=== PATIENT | male | born 1955 | race Caucasian/White ===

== ENCOUNTER 2023-11-20 22:06 | Inpatient (IN) | payer MEDICARE, SELFPAY ==
[2023-11-20 14:54] VITALS: BP 112/76
[2023-11-20 15:21] LABS: % Basophils 0.2 % (0-2); % Eosinophils 1.9 % (0-6); % Immature Granulocytes 0.4 % (0-0.5); % Lymphocytes 8.5 % (20.5-51.1); % Monocytes 5.5 % (1.7-9.3); % Neutrophils 83.5 % (42.2-75.2); Absolute Eosinophils 0.2 10^3/uL (0-0.7); Absolute Lymphocytes 0.7 10^3/uL (1.2-3.4); Absolute Monocytes 0.5 10^3/uL (0.1-0.6); Absolute Neutrophils 7.1 10^3/uL (1.4-6.5); Hematocrit 43.8 % (39.0-52.0); Hemoglobin 14.6 g/dL (13.0-18.0); Mean Corp Hgb Conc. 33.3 g/dL (33.0-37.0); Mean Corpuscular Hgb 30.9 pg (27.0-31.0); Mean Corpuscular Volume 92.6 fL (80.0-94.0); Mean Platelet Volume 9.6 fL (7.4-10.4); Nucleated Red Blood Cells % 0 % (-); Platelet Count 201 10^3/uL (130-400); Red Blood Cell Count 4.73 10^6/uL (4.70-6.10); Red Cell Dist. Width 15.9 % (11.5-14.5); White Blood Cell Count 8.4 10^3/uL (4.8-10.8)
[2023-11-20 15:35] LABS: APTT 30.8 Sec (23.4-35.0)
[2023-11-20 15:36] LABS: ALT (SGPT) 15 U/L (0-50); AST (SGOT) 21 U/L (17-59); Alkaline Phosphatase 68 U/L (38-126); Blood Urea Nitrogen 15 mg/dl (9-20); Calcium 8.4 mg/dl (8.4-10.2); Carbon Dioxide 27 mmol/L (22-30); Chloride 101 mmol/L (98-107); Glucose 127 mg/dl (70-99); Potassium 3.3 mmol/L (3.5-5.1); Sodium 135 mmol/L (135-145); Total Bilirubin 1.4 mg/dl (0.2-1.3); Total Protein 5.7 g/dl (6.3-8.2); eGFR > 60.00
[2023-11-20] MEDS: FOLTX 1 TABLET PO (17:37)
[2023-11-20 17:38] VITALS: BMI 18.2
[2023-11-20 18:11] LABS: NT-proBNP 653 pg/ml; Troponin I < 0.012 ng/ml
[2023-11-20 18:56] LABS: Vitamin B12 691 pg/ml (239-931)
--- NOTE | 2023-11-20 20:56 | ED.GENMED ---
History of Present Illness
General
Chief Complaint: Failure to Thrive
Source: patient
Exam Limitations: none
Time Seen by Provider: 11/20/23 16:14
Nursing documentation reviewed up to this point in time: agreed with
History of Present Illness
History of Present Illness:
68-year-old male past medical history of previous CVA, hypertension previous prostate cancer depression anxiety presenting to the emergency department today with concerns of weight loss and worsening dyspnea on exertion shortness of breath over the
past few weeks. Does not not feel well over the past few weeks as well. Is a chronic daily drinker but has not been drinking much over the past 7 days. Specific chest pain.
Review of Systems
Review of Systems
Allergies reviewed?: Yes
All Other Systems: ROS reviewed and negative except as documented in HPI and ROS
Phy Exam
Physical Exam
Physical Exam:
GENERAL: Alert , in no apparent distress
EYE: pupils equal and reactive
NECK: Supple, no significant adenopathy.
ENT: o/p clr, mmm.
CARDIAC: Regular rate and rhythm .
LUNGS: Significant adventitious lung sounds to the left clear on the right.
ABDOMEN: Soft, without focal tenderness, no r/g, no cvat
NEUROLOGICAL: Alert and oriented, no focal neuro deficits
SKIN: Warm and dry, skin intact.
MUSCULOSKELETAL: No edema, well perfused.
PSYCH: Normal and appropriate interaction.
Course
Orders/Labs/Results
Orders:
Orders
11/20/23 15:13
Complete Blood Count/With Diff Urgent
Comprehensive Metabolic Panel Urgent
PTT Urgent
11/20/23 16:37
EKG [Electrocardiogram (*1)] Urgent
Reason for Study: Fatigue / Weakness
EKG- Treatment ONCE
Chest [CR Chest - 2 Views ] Urgent
Comment:
Reason For Exam: sob
11/20/23 17:15
FA/Cyanocobalamin/Pyridoxine [Foltx] 1 tablet PO NOW STA
11/20/23 17:36
B12 [Vitamin B12] Urgent
BNP [NT-proBNP] Urgent
TSH Urgent
Troponin I Urgent
11/20/23 20:03
CT Chest With Iv Contrast Urgent
Comment:
Reason For Exam: abnormal cxr
11/20/23 21:13
Azithromycin 500 mg/250 ml [Zithromax Infusion] 500 mg in 250 ml IV NOW
CefTRIAXone [Rocephin] 2,000 mg IV NOW STA
Heparin 3,600 units IV NOW STA
11/20/23 21:[address] Non Medication Order As Directed
Physician Order: PTT 6 hours after initial start of Heparin infusion
Above order entered?: Yes
11/20/23 21:15
Heparin 30963 Units/250 ml 25,000 units in 250 ml IV PER PROTOCOL
Weight to be used for heparin protocol in kilograms (kg):: 45.2
Protocol:: DVT/PE
PTT Goal Range to be used:: PTT 73 to 111 seconds
Order type:: Initial
INITIAL Infusion Dose (UNITS/KG/hr) & then follow protocol:: 18 units/kg/hr
Infusion Dose in UNITS/hr & then follow protocol (UNITS/hr):: 800
INFUSION RATE in mL/hr & then follow protocol (mL/hr):: 8
For DVT/PE algorithm, re-bolus for low PTT?: Yes
PTT less than or equal to 64 seconds:: Re-bolus 80 units/kg (max 10,000units). Increase by 200 units/hr
(+ 2mL/hr)
PTT 64.1 to 72.9 seconds:: Re-bolus 40 units/kg (max 5,000 units). Increase by 100 units/hr
(+ 1mL/hr)
PTT 73 to 111 seconds:: Target Range. No change in rate.
PTT 111.1 to 130.9 seconds:: Decrease rate by 100 units/hr (- 1 mL/hr)
PTT 131 to 199.9 seconds:: HOLD for 1 hr. Then decrease by 100 units/hr (- 1mL/hr)
PTT greater than or equal to 200 seconds:: HOLD for 2 hrs & Notify Provider. Then decrease by 200 units/hr
(- 2mL/hr)
Lab follow-up:: Each change, PTT q6h until 2 consecutive are therapeutic. Then
PTT daily.
11/20/23 21:39
Heparin 3,600 units IV PRN PRN
11/20/23 21:40
Heparin 1,800 units IV PRN PRN
Sterile Water [Sterile Water For Injection] 20 ml .ROUTE .[facility]
11/20/23 21:50
Admit/Transfer Patient As Directed
Co-Sign Provider:
Level of Care: Inpatient admission
Assign to:: Medical/Surgical
Physician / Group: Leslie
Diagnosis: SOB
Reason for Hospitalization: Shortness of breath, pulmonary embolism
Expected length of stay greater than two midnights?: Yes
ELOS- Estimated Length of Stay in days: 5
I certify the patient meets the requirements for IP care: Yes
11/20/23 21:51
Code Status As Directed
Resuscitation Status: Full Code
11/20/23 22:00
Consult Interventional Radiology [IRAD CONSULT] Routine
Consulting Provider: Nehemias Bonilla
Was physician already notified: Yes
Reason for Consult/Procedure: R side pleural effusion
Acknowledgement that appropriate orders are entered: Yes
PULMONARY CONSULT Routine
Consulting Provider: Luana Luna
Was physician already notified: Yes
Reason for consult: R lung collpase, PE
11/21/23 04:00
PTT Urgent
Abnormal Lab Results
11/20/23 11/20/23
15:13 17:36
RDW 15.9 H %
(11.5-14.5)
Absolute Neuts (auto) 7.1 H 10^3/uL
(1.4-6.5)
Absolute Lymphs (auto) 0.7 L 10^3/uL
(1.2-3.4)
Neutrophils % 83.5 H %
(42.2-75.2)
Lymphocytes % 8.5 L %
(20.5-51.1)
Potassium 3.3 L mmol/L
(3.5-5.1)
Creatinine 0.6 L mg/dL
(0.7-1.3)
Glucose 127 H mg/dl
(70-99)
Total Bilirubin 1.4 H mg/dl
(0.2-1.3)
Total Protein 5.7 L g/dl
(6.3-8.2)
Albumin 3.0 L g/dl
(3.5-5.0)
TSH 38.30 H uIU/ml
(0.47-4.68)
11/20/23 15:13
11/20/23 15:13
CT read
IMPRESSION:
Relatively moderate sized nonocclusive pulmonary embolism in the right main pulmonary artery.
Severely atelectatic/collapsed appearance of the right lung with a suspected degree of underlying pulmonary consolidation.
Occlusion of the right main bronchus.
Innumerable nodules throughout the left lung.
Constellation of findings is most suggestive of pulmonary malignancy. Infection cannot technically be excluded.
Very large right-sided pleural effusion. Very small left pleural effusion.
No pneumothorax.
Atherosclerosis including marked coronary artery calcification. No aortic aneurysm.
Additional findings: Old left-sided rib fractures. Chronic-appearing nonunion right-sided rib fractures. Chronic DDD/DJD.
Vital Signs
Initial and Last Documented VS:
Initial Vital Signs
Pulse Resp BP Pulse Ox
87 16 112/76 96
11/20/23 14:54 11/20/23 14:54 11/20/23 14:54 11/20/23 14:54
Last Documented Vital Signs
Pulse Resp BP Pulse Ox
64 31 106/72 96
11/20/23 21:45 11/20/23 20:00 11/20/23 21:10 11/20/23 21:45
MDM/Problems Addressed
MDM/Problems Addressed:
68-year-old male presenting to the emergency department today with concerns of worsening dyspnea on exertion fatigue weakness and generalized worsening symptoms over the past few weeks. On arrival vital signs are normal patient in no obvious
distress does have adventitious lung sounds to the left side. X-ray showing complete white discoloration to the right side lung without hard differentiate from the x-ray. CT scan was ordered with contrast showed likely large effusion with
compression of the lung. Remained stable throughout ER stay will be admitted for IR consultation as well as heparin started for possibility of PE and antibiotics as infection cannot be ruled out.
*Critical Care Note
Total Time (30-74mins, 75-104mins- exclusive of procedures): Not Applicable
ED Attending Note
-
Portions of this chart may have been created with voice recognition software.� Occasional wrong word or��sound alike� substitutions may have occurred due to the inherent limitations of voice recognition software.
Discharge Plan
Departure
Patient Disposition: Admit
Date of Disposition: 11/20/23
Time of Disposition: 22:19
Admit to: Telemetry
Admit to doctor: Ivory
Presentation/result/management discussed w/ accepting MD/DO: Hospitalist
Patient with high blood pressure during this ER visit?: No
Condition: Good
Covid-19: Not Applicable
Discharge Problem:
Pleural effusion
Interventions
Interventions:
*Risk Screen - Suicide Last Done: 11/20/23 17:20
*General Assessment Last Done: 11/20/23 19:07
*Neglect/Abuse Screening Last Done: 11/20/23 19:07
ED- Fall Risk Assessment Last Done: 11/20/23 18:05
*ED COVID-19 Vaccine History Last Done: 11/20/23 19:07
[2023-11-20 21:10] VITALS: BP 106/72
--- NOTE | 2023-11-20 21:20 | HPS.HSE ---
Family Physician
-
Family Physician: * NONE
Chief Complaint
-
Shortness of breath
History of Present Illness
68-year-old male who lives in [place] area with known history of a prior stroke, hypertension, alcohol abuse and a former smoker who quit 25 days ago brought to the hospital by his niece for evaluation of the shortness of breath and weight loss.
Patient awake, alert and oriented x 3 hold appropriate conversation accompanied by her niece at the bedside. Patient admitted for the last month he is progressively feeling short of breath worse with any kind of exertional activity and noticing he
is gradually losing weight admit he has been eating and drinking well, denies any nausea or vomiting or any fever or chill admit he is having a cough productive of clear occasional yellow phlegm, denies any hematuria or any rectal bleed or changes
stool or urine color.
No headache or vision change.
He is been smoking a pack until 25 days ago while drinking 3 large beers daily the last time was 2 days ago.
He is able to provide most of the information while his niece helps provide more information.
CT chest Right lung collapse and Pulmonary embolism.
Started on antibiotics and heparin Drip.
Medical History
Past Medical History
Past Medical History: Reports Other
Additional Past Medical History:
Past medical History:
Hypertension
Stroke
Prostate cancer
alcohol abuse
Former Smoker
Social History:drinks alcohol, drinks 3 large beer daily , smoked one pack for many year but quit 25 days ago, denied drug use.
Family history: father had colon cancer, Hypertension.
Past Surgical History: Reports Other
Social History
Unable to obtain full social history at this time due to: Other
Family History
Family History: Other
Allergies / Home Medications
Allergies reflects when Allergies were last updated in [employer].
Home Medications with original date entered in [employer]
Allergy/Medication List:
Not taking any medication.
Review of Systems
-
A 12 point ROS was completed and negative except as noted: Yes
Physical Exam
Vital Signs
Vital Signs
Pulse Resp BP Pulse Ox
70 31 112/76 93
11/20/23 20:00 11/20/23 20:00 11/20/23 14:54 11/20/23 20:00
Physical Exam
General: Other
Psych: Other
Laboratory Results
-
11/20/23 15:13
11/20/23 15:13
Laboratory Results
APTT 30.8 Sec (23.4-35.0) 11/20/23 15:13
Total Bilirubin 1.4 mg/dl (0.2-1.3) H 11/20/23 15:13
AST 21 U/L (17-59) 11/20/23 15:13
ALT 15 U/L (0-50) 11/20/23 15:13
Alkaline Phosphatase 68 U/L (38-126) 11/20/23 15:13
Troponin I < 0.012 ng/ml 11/20/23 17:36
CT chest:
Relatively moderate sized nonocclusive pulmonary embolism in the right main pulmonary artery.
Severely atelectatic/collapsed appearance of the right lung with a suspected degree of underlying pulmonary consolidation.
Occlusion of the right main bronchus.
Innumerable nodules throughout the left lung.
Constellation of findings is most suggestive of pulmonary malignancy. Infection cannot technically be excluded.
Very large right-sided pleural effusion. Very small left pleural effusion.
No pneumothorax.
Atherosclerosis including marked coronary artery calcification. No aortic aneurysm.
CXR:
Dense opacification of the entire right hemithorax. Numerous differential diagnostic possibilities some of which include pleural effusion, mass and parenchymal consolidation.
Nonspecific reticular interstitial opacities throughout the left lung.
No findings to suggest mediastinal shift.
Data Reviewed
-
Diagnostic Radiology: Image Personally Visualized and interpreted, Discussed with Physician, Discussed with Patient and Discussed with Family
CT Scan: Image Personally Visualized and interpreted, Discussed with Physician, Discussed with Patient and Discussed with Family
Lab Data: Labs Reviewed by me, Discussed with Patient and Discussed with Family
Old Records: Reviewed
Impression/Plan
-
IMPRESSION:
68 year with prior history of stroke, hypertension and alcohol abuse, presented with Shortness of breath for one month , likely secondary to collapsed lung and pulmonary embolism, concerns for lung cancer, .maintains normal oxygen saturation in room
air.
Collapsed lung
R bronchial mass
Pleural effusion
Concern for obstructive pneumonia
Pulmonary embolism
Alcohol abuse
Former Smoker
PLAN:
Cover with Rocephin and Zithromax
Monitor vital signs
Started on heparin drip and monitor for any kind of bleeding
Pulmonary and IR consult.
IR for evaluation for thoracocentesis
Recheck labs
Alcohol Withdrawal
All discussed with the patient and his niece
code status is full code
[2023-11-20] MEDS: HEPARIN 3600 UNITS IV (21:50)
[2023-11-20] MEDS: ZITHROMAX INFUSION 250 IV (21:50)
[2023-11-20] MEDS: ROCEPHIN 2000 MG IV (21:50)
[2023-11-20] MEDS: HEPARIN 25000 UNITS/250 ML IV (21:51)
[2023-11-20] MEDS: VITAMIN B1 100 MG PO (23:10)
[2023-11-20 23:19] VITALS: BP 100/66; BMI 17.9
--- NOTE | 2023-11-20 23:30 | PTCARENOTE ---
Patient admitted from ED. Patient is AAO x3, on RA, in no acute distress. Heparin drip initiated in ED. Bed alarm is on. Patient oriented to room and call hall within reach.
[2023-11-21 00:50] LABS: GGTP 11 U/L (15-73)
[2023-11-21 04:42] LABS: % Basophils 0.4 % (0-2); % Eosinophils 3.6 % (0-6); % Immature Granulocytes 0.7 % (0-0.5); % Lymphocytes 12.7 % (20.5-51.1); % Monocytes 5.4 % (1.7-9.3); % Neutrophils 77.2 % (42.2-75.2); Absolute Eosinophils 0.3 10^3/uL (0-0.7); Absolute Immature Granulocytes 0.1 10^3/uL (0-0.05); Absolute Lymphocytes 0.9 10^3/uL (1.2-3.4); Absolute Monocytes 0.4 10^3/uL (0.1-0.6); Absolute Neutrophils 5.7 10^3/uL (1.4-6.5); Hematocrit 38.7 % (39.0-52.0); Hemoglobin 13.7 g/dL (13.0-18.0); Mean Corp Hgb Conc. 35.4 g/dL (33.0-37.0); Mean Corpuscular Hgb 31.2 pg (27.0-31.0); Mean Corpuscular Volume 88.2 fL (80.0-94.0); Mean Platelet Volume 9.4 fL (7.4-10.4); Nucleated Red Blood Cells % 0 % (-); Platelet Count 197 10^3/uL (130-400); Red Blood Cell Count 4.39 10^6/uL (4.70-6.10); Red Cell Dist. Width 15.7 % (11.5-14.5); White Blood Cell Count 7.4 10^3/uL (4.8-10.8)
[2023-11-21 05:05] LABS: APTT 112.1 Sec (23.4-35.0)
[2023-11-21 05:23] LABS: Blood Urea Nitrogen 12 mg/dl (9-20); Calcium 8.3 mg/dl (8.4-10.2); Carbon Dioxide 23 mmol/L (22-30); Chloride 103 mmol/L (98-107); Estimated Creatinine Clearance 76 ml/min; Glucose 84 mg/dl (70-99); Magnesium 2.3 mg/dl (1.6-2.3); Potassium 3.3 mmol/L (3.5-5.1); Sodium 134 mmol/L (135-145); eGFR > 60.00
[2023-11-21 06:06] LABS: Vitamin B12 904 pg/ml (239-931)
[2023-11-21] MEDS: FOLVITE 1 MG PO (07:41)
[2023-11-21] MEDS: THIAMINE INJECTION 200 MG IV ×2 (07:41→20:28)
[2023-11-21] MEDS: VITAMIN B1 100 MG PO (07:41)
[2023-11-21 07:49] VITALS: BP 144/94
[2023-11-21] MEDS: KCL 40 MEQ PO (07:49)
--- NOTE | 2023-11-21 09:52 | CM ---
Patient seen bedside, initial assessment completed. Patient resides independently in a two story home, three steps to enter. Patient reports he has support from family. Patient denies DME, VN, or SNF history. Patient reports he is not working.
Patient denies PCP, is not interested in a list at this time. Patient confirms pharmacy [facility]. CM offered [facility]/ resources to patient for alcohol use, patient declines at this time. CM will continue to follow for all discharge planning needs.
Plan; home no needs anticipated.
--- NOTE | 2023-11-21 11:57 | CON.PUL ---
Consultation
Consultation Request
Date/Time Consultation Requested: 11/21/23
Date/Time Consultation Performed: 11/21/23
Performing Provider: Jeremy
Reason for Consultation: PE
Medical History
-
History of Present Illness:
Patient is a 68-year-old male with known history of a prior stroke, hypertension, alcohol abuse and a former smoker who quit 25 days ago brought to the hospital by his niece for evaluation of the shortness of breath and weight loss. He notes that
this has been progressive for the past year in which he had had decreasing appetite, weight loss, SOB and weakness.
Has been smoking 1PPD since 12 years old, quit 1 months ago. He is a chronic everyday drinker, 3 large beers daily, last drink was 2 days ago [employer].
In ER, CXR and CT chest showing total right sided 'white out' indicating possible effusion or atelectasis with possible R sided thrombus. He is started on abx and IV heparin.
Denies known history of lung disease. He has a history of prostate cancer in the past.
There is family history of pancreatic cancer in his father.
Past Medical History
Past Medical History: Other (see list below)
Social History
Tobacco: Former Smoker
Alcohol: Daily
Drug: None
Family History
Family History: Cancer
Allergies / Home Medications
Allergies
Allergy/AdvReac Type Severity Reaction Status Date / Time
No Known Allergies Allergy Verified 11/20/23 14:53
Home Medications
�Medication �Instructions �Recorded �Confirmed �Last Taken �Type
No Meds [No Current Medications] 11/20/23 11/20/23 Unknown History
Review of Systems
-
History Source: Patient
All other systems: Negative unless noted
Vitals / Labs / Diagnostic Testing
Vital Signs
Temp Pulse Resp BP Pulse Ox
98.3 F 81 20 144/94 94
11/21/23 07:49 11/21/23 07:49 11/21/23 07:49 11/21/23 07:49 11/21/23 10:21
Lab Data
11/21/23 04:33
11/21/23 04:33
Laboratory Results
11/20/23 11/20/23 11/21/23
15:13 21:14 04:33
APTT 30.8 Cancelled 112.1 H
Diagnostic Testing:
Physical Exam
-
HEENT: Normocephalic, Anicteric and Moist Mucous Membranes
Cardiovascular: S1/S2 and Regular Rhythm
Respiratory: Non-Labored Respirations and Other (absent BS on R)
GI: Soft, Non Distended and Non Tender
Neurology: Awake, Alert, Oriented, AO x 3 and No Motor Deficits
Skin: Warm and Dry
General: Poor Appetite and Other (cachectic/disheveled appearance, weak/deconditioned)
Assessment
-
Patient is a 68-year-old male with known history of a prior stroke, hypertension, alcohol abuse and a former smoker who quit 25 days ago brought to the hospital by his niece for evaluation of the shortness of breath and weight loss. He notes that
this has been progressive for the past year in which he had had decreasing appetite, weight loss, SOB and weakness. In ER, CXR and CT chest showing total right sided 'white out' indicating possible effusion or atelectasis with possible R sided
thrombus. He is started on abx and IV heparin. We are consulted for eval 11/21/23.
Total 'white out', R sided atelectasis
R sided PE
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
SOB
Weight loss, decreased appetite
Cachexia
Conditions present [employer]
Hypertension
Stroke
Prostate cancer
Chronic alcohol abuse
Former Smoker
Plan
No oxygen was needed on admission, currently saturating >90% on RA
Denies known history of lung disease. He has a history of prostate cancer in the past.
There is family history of pancreatic cancer in his father.
Has been smoking 1PPD since 12 years old, quit 1 months ago.
Suspect patient has underlying malignant effusion
CXR/CT obtained indicating total R side white out
IR consult for thora, please send labs/cyto
Other imaging reviewed-CT also showing possible PE
Started on IV heparin
Smoking history noted
Smoking cessation, has quit 25 days ago
He is a chronic everyday drinker, 3 large beers daily, last drink was 2 days ago [employer]
Observe for signs of w/d
MSAS PRN
Thiamine/folate
Weight loss noted
May need dietary consult for diet
Cachectic appearing
Will need outpatient pulmonary evaluation in our office for PFTs and 6MWT
Reviewed with patient
Overall prognosis appears poor, may need to consider GOC discussions pending results of path
We will follow
Diagnostic Data
Chest X-Ray: 11/20/23- Dense opacification of the entire right hemithorax. Numerous differential diagnostic possibilities some of which include pleural effusion, mass and parenchymal consolidation.
Nonspecific reticular interstitial opacities throughout the left lung. No findings to suggest mediastinal shift.
CT Scan: 11/20/23- Large right pleural effusion with complete collapse of the right lung, findings resulting in complete opacification of the right hemithorax. There is slight shift of the mediastinum toward the left. Subtle thickened enhancement of
the periphery of the right pleural space, especially inferiorly, which is suggestive of malignant right pleural effusion. Within the interlobar right pulmonary artery, there is an ovoid filling defect, with main differential considerations of bland
clot/thrombus, versus tumor thrombus extending into the lumen of the right pulmonary artery. Numerous nodular opacities throughout the left lung, with a region of greater confluence in the medial aspect of the left lower lobe. Findings are felt to
most likely represent neoplasia. Diffuse infection is a differential consideration, but felt to be less likely. There is a minimal left effusion, posteromedially. Lymphadenopathy in the AP window and left hilar region, highly suspicious for
neoplastic lymphadenopathy.
No convincing evidence for bony metastatic disease. Slightly enlarged lymph nodes in the gastrohepatic ligament region of the upper abdomen, suspicious for neoplastic lymphadenopathy.
Echo:
PFT's:
Reports and relevant images were personally reviewed.
-----
Total time spent on this consultation __75__ includes review of history, physical exam, medications, laboratory data, personal review of imaging, extensive review of outpatient records, discussion with care team and respiratory therapy.
[2023-11-21 12:08] LABS: APTT 65.2 Sec (23.4-35.0)
[2023-11-21] MEDS: HEPARIN 1800 UNITS IV (12:30)
--- NOTE | 2023-11-21 13:05 | W.PN.HOSP.TC ---
Today's Communication/Plan
-
consider stopping heparin
will need IR for thoracentesis and likely chest tube--studies ordered
check free T4 in AM--for now start levothyroxine 25 mcg daily
await pulm/IR
Assessment / Plan
Assessment / Plan
pt is a 68 year old male
SOB for at least 4 weeks--significant right sided pleural effusion (with smoking hx, weight loss) likely malignant--await pulm/IR input--needs thoracentesis and likely chest tube (unclear if lung will re-expand without it)--if we are considering
post obstructive pna, would change rocephin/zithromax to zosyn for better anaerobic coverage
hypokalemia--replete
Alcohol abuse--says stopped 7 days ago--no signs of withdrawal--cont protocol
likely severe protein calorie malnutrition--BMI 17
hypothyroid--TSH 35--will need to start levothyroxine--check free T4 in AM
code status -- full code
Anticipated Discharge: > 48 hours
Subjective/Interval History
-
Date of Service: November 21, 2023
pt does not feel well, weight loss, no appetite
Objective Data
-
Labs:
Laboratory Results
11/21/23 11/21/23 11/21/23
04:33 11:38 18:30
WBC 7.4
Hgb 13.7
Hct 38.7 L
Plt Count 197
APTT 112.1 H 65.2 H Pending
Sodium 134 L
Potassium 3.3 L
Chloride 103
Carbon Dioxide 23
BUN 12
Creatinine 0.5 L
Glucose 84
Calcium 8.3 L
Vital Signs:
max temp for 24 hours
11/20/23
23:19
Temp 97.6 F
Vital Signs
Temp Pulse Resp BP Pulse Ox
98.3 F 81 20 144/94 94
11/21/23 07:49 11/21/23 07:49 11/21/23 07:49 11/21/23 07:49 11/21/23 10:21
I&O
11/20/23 11/21/23 11/22/23
06:59 06:59 06:59
Intake Total 0 / 0
Output Total 225 / 225
Balance -225 / -225
Review of Systems
-
All other systems: Reviewed and negative
Constitutional: Reports Weight Loss
Abdomen/GI: Reports Anorexia
Physical Exam
-
General: Appears Chronically Ill and Cachectic
HEENT: Normocephalic and Atraumatic; Negative Good Dentition (poor dentition)
Respiratory: Decreased Breath Sounds (no breath sounds entire right lung)
Cardiac: Regular Rhythm, S1/S2 and Murmur
GI: Soft, Nontender, Nondistended and Normal Bowel Sounds
Musculoskeletal: No Clubbing, No Cyanosis and No Edema
Neuro: Awake and Alert
[2023-11-21 14:27] LABS: Total Protein 5.1 g/dl (6.3-8.2)
[2023-11-21 14:41] LABS: LDH 424 U/L (120-246)
[2023-11-21 15:59] VITALS: BP 93/62
[2023-11-21 18:53] LABS: APTT 130.6 Sec (23.4-35.0)
[2023-11-21] MEDS: ROCEPHIN 1000 MG IV (20:05)
[2023-11-21] MEDS: STERILE WATER FOR INJECTION 10 ML IV (20:05)
[2023-11-21] MEDS: ZITHROMAX INFUSION 250 IV (20:33)
[2023-11-21 21:51] VITALS: BP 93/58
[2023-11-21 23:16] VITALS: BP 93/52
[2023-11-22 01:55] LABS: APTT 79.9 Sec (23.4-35.0)
[2023-11-22 03:03] VITALS: BP 94/62
[2023-11-22] MEDS: HEPARIN 25000 UNITS/250 ML IV (04:56)
--- NOTE | 2023-11-22 05:46 | PTCARENOTE ---
Pts BPs low throughout the night House [employer] ASSIGNMENT EDITOR aware.
[2023-11-22 07:25] VITALS: BP 104/65
[2023-11-22 08:24] LABS: % Basophils 0.4 % (0-2); % Eosinophils 3.4 % (0-6); % Immature Granulocytes 0.5 % (0-0.5); % Monocytes 5.3 % (1.7-9.3); % Neutrophils 79.4 % (42.2-75.2); Absolute Eosinophils 0.2 10^3/uL (0-0.7); Absolute Lymphocytes 0.6 10^3/uL (1.2-3.4); Absolute Monocytes 0.3 10^3/uL (0.1-0.6); Absolute Neutrophils 4.5 10^3/uL (1.4-6.5); Hematocrit 38.4 % (39.0-52.0); Hemoglobin 13.2 g/dL (13.0-18.0); Mean Corp Hgb Conc. 34.4 g/dL (33.0-37.0); Mean Corpuscular Hgb 30.8 pg (27.0-31.0); Mean Corpuscular Volume 89.7 fL (80.0-94.0); Mean Platelet Volume 9.5 fL (7.4-10.4); Nucleated Red Blood Cells % 0 % (-); Platelet Count 199 10^3/uL (130-400); Red Blood Cell Count 4.28 10^6/uL (4.70-6.10); Red Cell Dist. Width 15.9 % (11.5-14.5); White Blood Cell Count 5.6 10^3/uL (4.8-10.8)
[2023-11-22 08:34] LABS: APTT 55.3 Sec (23.4-35.0)
[2023-11-22 08:54] LABS: ALT (SGPT) 14 U/L (0-50); AST (SGOT) 22 U/L (17-59); Albumin 2.5 g/dl (3.5-5.0); Alkaline Phosphatase 65 U/L (38-126); Blood Urea Nitrogen 9 mg/dl (9-20); Calcium 7.8 mg/dl (8.4-10.2); Carbon Dioxide 25 mmol/L (22-30); Chloride 104 mmol/L (98-107); Estimated Creatinine Clearance 76 ml/min; Glucose 86 mg/dl (70-99); Magnesium 2.3 mg/dl (1.6-2.3); Phosphorus 2.9 mg/dl (2.5-4.5); Potassium 3.4 mmol/L (3.5-5.1); Sodium 134 mmol/L (135-145); Total Bilirubin 0.7 mg/dl (0.2-1.3); Total Protein 4.9 g/dl (6.3-8.2); eGFR > 60.00
[2023-11-22] MEDS: KCL 40 MEQ PO (09:44)
[2023-11-22] MEDS: THIAMINE INJECTION 200 MG IV ×2 (09:44→21:19)
[2023-11-22] MEDS: FOLVITE 1 MG PO (09:44)
[2023-11-22] MEDS: HEPARIN 3600 UNITS IV (09:52)
[2023-11-22 10:45] VITALS: BP 85/72; BP_SYST 89
--- NOTE | 2023-11-22 11:11 | PTCARENOTE ---
Patient nervous about procedure today. Emotional support given, family member at bedside. Patient dyspneic when truing in bed, harsh, hacking occasional productive cough. Call hall in reach.
[2023-11-22 12:25] VITALS: BP 107/74
--- NOTE | 2023-11-22 12:30 | W.PN.PUL3 ---
Today's Communication / Plan
-
Thoracentesis today removed 2.25 L of dark brown pleural exudative fluid --> follow-up pleural fluid studies including cytology and micro
Consider Pleurx catheter given this is likely a malignant effusion
GOC discussion
Pain control
Dietary consultation
Oncology consult
Assessment
-
Patient is a 68-year-old male with known history of a prior stroke, hypertension, alcohol abuse and a former smoker who quit 25 days ago brought to the hospital by his niece for evaluation of the shortness of breath and weight loss. He notes that
this has been progressive for the past year in which he had had decreasing appetite, weight loss, SOB and weakness. In ER, CXR and CT chest showing total right sided 'white out' indicating possible effusion or atelectasis with possible R sided
thrombus. He is started on abx and IV heparin. We are consulted for eval 11/21/23.
Impression:
Total 'white out', R sided atelectasis due to large right-sided effusion
R sided PE with concern for tumor thrombus
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
Innumerable small left sided pulmonary nodules with left suprahilar/hilar lymphadenopathy likely due to metastatic disease
SOB
Weight loss, decreased appetite
Cachexia
Conditions present [employer]
Hypertension
Stroke
Prostate cancer
Chronic alcohol abuse
Former Smoker
Plan
No oxygen was needed on admission, currently saturating >90% on RA
Denies known history of lung disease. He has a history of prostate cancer in the past.
There is family history of pancreatic cancer in his father.
Has been smoking 1PPD since 12 years old, quit 1 month ago.
Suspect patient has underlying R-sided malignant effusion
CXR/CT obtained indicating total R side white out
Thoracentesis today removed 2.25 L of dark brown pleural fluid --> follow-up pleural fluid studies including cytology and micro --> consider pleurX, rebecca as given patient's poor functional status, I do not believe he is a candidate for chemo anyway
Follow-up cytology from thoracentesis and if negative then would send additional fluid off for a second time, otherwise would consider transthoracic needle aspiration from one of the many subpleural pulmonary nodules, however most of them are small
and the LLL 2 cm nodule is about 4 cm from the pleural surface so this is not ideal for a TTNA
Would consult oncology and check additional imaging with CT abdomen/pelvis as well as imaging of the brain to assess for any other distant metastasis as this could be helpful to determine which area should be biopsied to aid in diagnosis
Other imaging reviewed-CT also showing possible PE
Started on IV heparin --> eventual transition to Eliquis
Smoking history noted
Smoking cessation, has quit 25 days ago
He is a chronic everyday drinker, 3 large beers daily, last drink was 2 days ago [employer]LE[employer] DEAN
Observe for signs of w/d
MSAS PRN
Thiamine/folate
Weight loss noted
Recommend dietary consuld
Cachectic appearing
Will need outpatient pulmonary evaluation in our office for PFTs and 6MWT
Reviewed with patient
Overall prognosis appears poor, may need to consider GOC discussions pending results of path
We will follow
Total time spent today was 35 minutes for this encounter. Time includes reviewing laboratory test/imaging results, reviewing pertinent medical records, obtaining and reviewing medical history, performing an appropriate exam, ordering medications,
tests and procedures. Time also includes documentation of this encounter, coordinating patient care and communicating with other healthcare professionals. Total time does not include separately billed tests performed on this date of service.
Diagnostic Data
Chest X-Ray: 11/20/23- Dense opacification of the entire right hemithorax. Numerous differential diagnostic possibilities some of which include pleural effusion, mass and parenchymal consolidation.
Nonspecific reticular interstitial opacities throughout the left lung. No findings to suggest mediastinal shift.
CT Scan: 11/20/23- Large right pleural effusion with complete collapse of the right lung, findings resulting in complete opacification of the right hemithorax. There is slight shift of the mediastinum toward the left. Subtle thickened enhancement of
the periphery of the right pleural space, especially inferiorly, which is suggestive of malignant right pleural effusion. Within the interlobar right pulmonary artery, there is an ovoid filling defect, with main differential considerations of bland
clot/thrombus, versus tumor thrombus extending into the lumen of the right pulmonary artery. Numerous nodular opacities throughout the left lung, with a region of greater confluence in the medial aspect of the left lower lobe. Findings are felt to
most likely represent neoplasia. Diffuse infection is a differential consideration, but felt to be less likely. There is a minimal left effusion, posteromedially. Lymphadenopathy in the AP window and left hilar region, highly suspicious for
neoplastic lymphadenopathy.
No convincing evidence for bony metastatic disease. Slightly enlarged lymph nodes in the gastrohepatic ligament region of the upper abdomen, suspicious for neoplastic lymphadenopathy.
Echo:
PFT's:
Reports and relevant images were personally reviewed.
-----
Subjective Data
-
Date of Service:
Date of Service: November 22, 2023
Chief Complaint: Pulmonary Follow Up
Subjective:
Patient seen at bedside. Has some chest discomfort after the thoracentesis. Denies shortness of breath. Denies headache, abdominal pain, fevers or chills.
Review of Systems
General: Other (Negative unless mentioned above)
Objective Data
Data Reviewed
Vital Signs / I&O / Oxygen:
Vital Signs
Temp Pulse Resp BP Pulse Ox
97.5 F 89 24 85/72 96
11/22/23 10:45 11/22/23 10:45 11/22/23 10:45 11/22/23 10:45 11/22/23 10:45
Intake and Output
11/21/23 11/22/23 11/23/23
06:59 06:59 06:59
Intake Total 0 / 0 1174 / 1174
Output Total 225 / 225 100 / 100
Balance -225 / -225 1074 / 1074
SaO2 96
Physical Exam
General: Respiratory Distress (negative), Comfortable and Other (Cachectic appearing/chronically ill)
HEENT: Normocephalic and Anicteric
Cardiovascular: S1-S2 and Peripheral Edema (negative)
Respiratory: Wheeze (negative), Crackles (negative), Rhonchi (negative) and Other (Reduced breath sounds in the right hemithorax)
GI: Soft, Non Distended, Non Tender and Normal Bowel Sounds
Neurology: Awake and Alert
Skin: Warm and Dry
Labs/Micro/Reports
Lab Data
11/22/23 07:21
11/22/23 07:21
Laboratory Results
11/21/23 11/22/23 11/22/23
18:29 01:23 07:21
APTT 130.6 H 79.9 H 55.3 H
Microbiology
11/21/23 04:34 Nose MRSA Screen - Final
No Methicillin Resistant Staphylococcus aureus isolated.
[2023-11-22 12:31] LABS: Body Fluid pH 7.46
--- NOTE | 2023-11-22 12:32 | PTCARENOTE ---
Received patient from IR at 1225. Patient AAOx3, c/o headache and chest discomfort after right thoracentesis. RR 24, RA 97%. Heparin drip restarted at 1225, per IR ok to restart 1 hour after thoracentesis (1215). Tylenol given for RICCI. Physician and
resident at bedside. Family member at bedside ordering patient lunch.
[2023-11-22 12:56] LABS: Body Fluid WBC 621 /CUMM
[2023-11-22 12:57] LABS: Body Fluid Mononuclear 72.5 %; Body Fluid Polymorphonuclear 27.5 %
[2023-11-22] MEDS: TYLENOL 650 MG PO ×2 (13:05→16:47)
[2023-11-22] MEDS: TESSALON PERLES 200 MG PO (13:05)
[2023-11-22 13:16] LABS: Body Fluid Second Tech EF
--- NOTE | 2023-11-22 14:06 | W.PN.HOSP.TC ---
Addendum entered and electronically signed by Namita Frances MD 11/22/23 16:50:
I saw and evaluated the patient independently. I reviewed the resident�s note and agree with findings and plan as documented by Dr. Santos.
GENERAL: frail, cachectic appearing male in no apparent distress
HEENT: no O2
HEART: regular rate and rhythm, +S1, +S2
LUNGS : decreased BS right lung field with minimal air movement improvement to right lung after thoracentesis--crackles left mariana
ABDOM: soft, nontender, nondistended, + bowel sounds
EXT: no cyanosis, clubbing, or edema
NEUROLOGIC: grossly intact
SOB for at least 4 weeks--significant right sided pleural effusion (with smoking hx, weight loss) likely malignant--apprec pulm/IR input--s/p thoracentesis with 2250mls out-- chest tube not needed currently but likely will need repeat thoracentesis
in AM--fluid studies pending---if we are considering post obstructive pna, cont zosyn for better anaerobic coverage
hypokalemia--replete as needed
Alcohol abuse--says stopped 7 days ago--no signs of withdrawal--cont MSAS protocol
likely severe protein calorie malnutrition--BMI 17
hypothyroid--TSH 35-- started levothyroxine at 25mcg--check free T4 in AM--recheck TFTs in 4 weeks
code status -- full code
updated sister at bedside
Original Note:
Today's Communication/Plan
-
patient underwent thoracocentesis; will continue to be monitored in terms of respiratory distress
Assessment / Plan
Assessment / Plan
pt is a 68 year old male presenting with SOB for at least 4 weeks (ex-smoker)
Imaging shows massive right sided pleural effusion
thoracentesis was performed for the patient today (11/21)- chest tube was not inserted- pt currently is not in significant respiratory distress
levothyroxine was started for the patient. FT4 will be checked in 4-6 weeks
Patient is receiving thiamine due to History of Alcohol abuse
code status -- full code
Anticipated Discharge: 24 - 48 hours
Subjective/Interval History
-
Date of Service: November 22, 2023
Patient is unkempt and mildly agitated. Alert and oriented. He complains of chest pain.
Objective Data
-
Labs:
Laboratory Results
11/22/23 11/22/23
07:21 18:15
WBC 5.6
Hgb 13.2
Hct 38.4 L
Plt Count 199
APTT 55.3 H Pending
Sodium 134 L
Potassium 3.4 L
Chloride 104
Carbon Dioxide 25
BUN 9
Creatinine 0.5 L
Glucose 86
Calcium 7.8 L
Total Bilirubin 0.7
AST 22
ALT 14
Alkaline Phosphatase 65
Vital Signs:
Vital Signs
Temp Pulse Resp BP Pulse Ox
97.5 F 82 24 107/74 97
11/22/23 10:45 11/22/23 12:25 11/22/23 12:25 11/22/23 12:25 11/22/23 12:25
I&O
11/21/23 11/22/23 11/23/23
06:59 06:59 06:59
Intake Total 0 / 0 1174 / 1174
Output Total 225 / 225 100 / 100
Balance -225 / -225 1074 / 1074
Review of Systems
-
History Source: Patient
All other systems: Reviewed and negative
Constitutional: Reports Weight Loss
Respiratory: Reports Pleurisy and Other
Abdomen/GI: Reports Anorexia
Psych: Reports Other
Physical Exam
-
General: Other
HEENT: Normocephalic and Atraumatic
Respiratory: Crackles and Decreased Breath Sounds
Cardiac: Regular Rhythm
GI: Soft, Nontender, Nondistended and Normal Bowel Sounds
Rectal: Brown
Genito-urinary: No Costovertebral Tender
Musculoskeletal: No Clubbing, No Cyanosis and No Edema
Skin: Normal Turgor
Neuro: Awake, Alert, Oriented, No Motor Deficits and Central Nerve's Intact
Hematologic / Lymphatic: No Lymphadenopathy
Psych: Other
Data Reviewed
-
Total Time Spent with Patient (in minutes): 15
--- NOTE | 2023-11-22 14:32 | W.PN.HOSP.TC ---
Assessment / Plan
Assessment / Plan
pt is a 68 year old male presenting with SOB for at least 4 weeks (ex-smoker)
Imaging shows significant right sided pleural effusion
thoracentesis was performed for the patient today (11/21)- chest tube was not inserted
levothyroxine was started for the patient. FT4 will be checked in 4-6 weeks
Patient is receiving thiamine due to History of Alcohol abuse
code status -- full code
Subjective/Interval History
-
Date of Service: November 22, 2023
Objective Data
-
Labs:
Laboratory Results
11/22/23 11/22/23
07:21 18:15
WBC 5.6
Hgb 13.2
Hct 38.4 L
Plt Count 199
APTT 55.3 H Pending
Sodium 134 L
Potassium 3.4 L
Chloride 104
Carbon Dioxide 25
BUN 9
Creatinine 0.5 L
Glucose 86
Calcium 7.8 L
Total Bilirubin 0.7
AST 22
ALT 14
Alkaline Phosphatase 65
Vital Signs:
Vital Signs
Temp Pulse Resp BP Pulse Ox
97.5 F 82 24 107/74 97
11/22/23 10:45 11/22/23 12:25 11/22/23 12:25 11/22/23 12:25 11/22/23 12:25
I&O
11/21/23 11/22/23 11/23/23
06:59 06:59 06:59
Intake Total 0 / 0 1174 / 1174
Output Total 225 / 225 100 / 100
Balance -225 / -225 1074 / 1074
[2023-11-22 14:33] LABS: Body Fluid Glucose 64 mg/dl; Body Fluid LDH 807 U/L
[2023-11-22 15:31] VITALS: BP 97/64
[2023-11-22] MEDS: DUONEB 3 ML INH (15:31)
--- NOTE | 2023-11-22 17:01 | CM ---
Spoke with pt and Ana [phone] sister in room .
Pt has no PCP and declined list.
Pt lives in [place].
Adrielres saw pt but he declined [facility] information.
Explained that with out PCP VN could not set up VN.
Requested PT OT evals.
PLAN Pending PT OT evals
[2023-11-22 17:06] VITALS: BMI 17.9
[2023-11-22] MEDS: ZOSYN 50 IV (21:19)
[2023-11-22 23:27] VITALS: BP 106/70
[2023-11-23 02:20] LABS: APTT 142.2 Sec (23.4-35.0)
[2023-11-23] MEDS: ZOSYN 50 IV ×4 (03:38→20:53)
[2023-11-23] MEDS: SYNTHROID 25 MCG PO (05:46)
[2023-11-23 06:53] LABS: Hematocrit 40.3 % (39.0-52.0); Hemoglobin 13.2 g/dL (13.0-18.0); Mean Corp Hgb Conc. 32.8 g/dL (33.0-37.0); Mean Corpuscular Hgb 30.3 pg (27.0-31.0); Mean Corpuscular Volume 92.4 fL (80.0-94.0); Mean Platelet Volume 9.6 fL (7.4-10.4); Platelet Count 169 10^3/uL (130-400); Red Blood Cell Count 4.36 10^6/uL (4.70-6.10); Red Cell Dist. Width 15.8 % (11.5-14.5); White Blood Cell Count 5.3 10^3/uL (4.8-10.8)
[2023-11-23 07:15] VITALS: BP 123/74
--- NOTE | 2023-11-23 07:50 | PTCARENOTE ---
Pt aaox3 lethargic, shira effect, doesn't like to be bothered when trying to provide care. Pt says at times to stop the heparin drip & then states let me bleed out,let me sleep.Pt was explained the reason for the heparin drip,still reluctant with
care at times.Plan of care continued & emotional support was provided.pt was washed up this morning.Pt was explained to talk to the MD in am about concerns & plan of care. Pt aware of he might need thoracentesis this morning.
[2023-11-23] MEDS: THIAMINE INJECTION 200 MG IV ×2 (08:48→20:53)
[2023-11-23] MEDS: FOLVITE 1 MG PO (08:48)
[2023-11-23 09:23] LABS: Blood Urea Nitrogen 7 mg/dl (9-20); Carbon Dioxide 25 mmol/L (22-30); Chloride 105 mmol/L (98-107); Estimated Creatinine Clearance 76 ml/min; Glucose 79 mg/dl (70-99); Magnesium 2.3 mg/dl (1.6-2.3); Potassium 4.2 mmol/L (3.5-5.1); Sodium 133 mmol/L (135-145); eGFR > 60.00
--- NOTE | 2023-11-23 09:36 | W.PN.HOSP.TC ---
Addendum entered and electronically signed by Namita Frances MD 11/23/23 13:26:
I saw and evaluated the patient independently. I reviewed the resident�s note and agree with findings and plan as documented by Dr. Santos.
GENERAL: frail, cachectic appearing male in no apparent distress
HEENT: no O2
HEART: regular rate and rhythm, +S1, +S2
LUNGS : decreased BS right lung field with minimal air movement improvement to right lung after thoracentesis--crackles left lung
ABDOM: soft, nontender, nondistended, + bowel sounds
EXT: no cyanosis, clubbing, or edema
NEUROLOGIC: grossly intact
SOB for at least 4 weeks--significant right sided pleural effusion (with smoking hx, weight loss) likely malignant--apprec pulm/IR input--s/p thoracentesis with 2250mls out, exudate--for repeat thoracentesis--if we are considering post obstructive
pna, cont zosyn for better anaerobic coverage
hypokalemia--replete as needed
Alcohol abuse--says stopped 7 days ago--no signs of withdrawal--cont MSAS protocol
likely severe protein calorie malnutrition--BMI 17
hypothyroid--TSH 35-- started levothyroxine at 25mcg--check free T4 in AM--recheck TFTs in 4 weeks
code status -- full code
Original Note:
Today's Communication/Plan
-
Repeat thoracocentesis. Continue to monitor vital signs TDS. OT/PT consult
Assessment / Plan
Assessment / Plan
Patient is 68-year-old male
SOB for at least 4 weeks--significant right sided pleural effusion (with smoking hx, weight loss) likely malignant--apprec pulm/IR input--s/p thoracentesis with 2250mls out-- chest tube not needed currently-- repeat thoracentesis likely
needed--fluid studies pending--- started zosyn for better anaerobic coverage (possible postobstructive PNA)
hypokalemia--replete as needed
Alcohol abuse--says stopped 7 days ago--no signs of withdrawal--cont MSAS protocol
likely severe protein calorie malnutrition--BMI 17--possible dietary consultation
hypothyroid--TSH 35-- started levothyroxine at 25mcg--check free T4 in AM--recheck TFTs in 4 weeks
code status -- full code
updated sister at bedside
Anticipated Discharge: > 48 hours
Subjective/Interval History
-
Date of Service: November 23, 2023
Patient is in no apparent distress. Patient mentions he does not want to be visited by OT/PT. per the patient, chest pain is better than yesterday and breathing has slightly improved. Patient is eating better than before.
Objective Data
-
Labs:
Laboratory Results
11/23/23 11/23/23 11/23/23
01:31 06:27 09:40
WBC 5.3
Hgb 13.2
Hct 40.3
Plt Count 169
APTT 142.2 H Pending
Sodium 133 L
Potassium 4.2
Chloride 105
Carbon Dioxide 25
BUN 7 L
Creatinine 0.6 L
Glucose 79
Calcium 8.0 L
Vital Signs:
Vital Signs
Temp Pulse Resp BP Pulse Ox
97.3 F 60 18 123/74 97
11/23/23 07:15 11/23/23 07:15 11/23/23 07:15 11/23/23 07:15 11/23/23 07:15
I&O
11/22/23 11/23/23 11/24/23
06:59 06:59 06:59
Intake Total 1174 / 1174 600 / 600
Output Total 100 / 100 200 / 200
Balance 1074 / 1074 400 / 400
--- NOTE | 2023-11-23 09:56 | PTOTSP ---
SPOKE WITH RN. NOTED THAT PATIENT HAS BEEN REFUSING CARE. PATIENT CONTACTED BEDSIDE AND REFUSED THERAPY STATING 'I CAN'T MOVE.' DESPITE CONTINUED ATTEMPTS, PATIENT REFUSED AND DOES NOT WISH FOR THERAPY TO RETURN. WILL DISCHARGE FROM P.T. SERVICES AT
THIS TIME.
[2023-11-23 10:51] LABS: APTT 54.7 Sec (23.4-35.0)
--- NOTE | 2023-11-23 11:05 | W.PN.PUL3 ---
Today's Communication / Plan
-
Thoracentesis on 11/22/2023 removed 2.25 L of dark brown pleural exudative fluid --> follow-up pleural fluid studies including cytology and micro
Consider Pleurx catheter given this is likely a malignant effusion
GOC discussion
Pain control
Dietary consultation
Check Ct Abd/Pelvis to eval for distant mets
Oncology consult
Assessment
-
Patient is a 68-year-old male with known history of a prior stroke, hypertension, alcohol abuse and a former smoker who quit 25 days ago brought to the hospital by his niece for evaluation of the shortness of breath and weight loss. He notes that
this has been progressive for the past year in which he had had decreasing appetite, weight loss, SOB and weakness. In ER, CXR and CT chest showing total right sided 'white out' indicating possible effusion or atelectasis with possible R sided
thrombus. He is started on abx and IV heparin. We are consulted for eval 11/21/23.
Impression:
Total 'white out', R sided atelectasis due to large right-sided effusion
R sided PE with concern for tumor thrombus
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
Innumerable small left sided pulmonary nodules with left suprahilar/hilar lymphadenopathy likely due to metastatic disease
SOB
Weight loss, decreased appetite
Cachexia
Conditions present [employer]
Hypertension
Stroke
Prostate cancer
Chronic alcohol abuse
Former Smoker
Plan
No oxygen was needed on admission, currently saturating >90% on RA
Denies known history of lung disease. He has a history of prostate cancer in the past.
There is family history of pancreatic cancer in his father.
Has been smoking 1PPD since 12 years old, quit 1 month ago.
Suspect patient has underlying R-sided malignant effusion
CXR/CT obtained indicating total R side white out
Due to possible component of postobstructive pneumonia, continue with Zosyn and would give 7 days antibiotics total assuming he remains afebrile for 48 hours prior
Thoracentesis from 11/22/2023 removed 2.25 L of dark brown exudative pleural fluid --> follow-up pleural fluid studies including cytology and micro --> consider pleurX, rebecca as given patient's poor functional status, I do not believe he is a candidate
for chemo anyway and his treatment for suspected cancer will likely be largely palliative
Follow-up cytology from thoracentesis and if negative then would send additional fluid off for a second time, otherwise would consider transthoracic needle aspiration from one of the many subpleural pulmonary nodules, however most of them are small
and the LLL 2 cm nodule is about 4 cm from the pleural surface so this is not ideal for a TTNA
Would consult oncology and check additional imaging with CT abdomen/pelvis as well as imaging of the brain to assess for any other distant metastasis as this could be helpful to determine which area should be biopsied to aid in diagnosis
Other imaging reviewed-CT also showing possible PE vs tumor
Started on IV heparin --> eventual transition to Eliquis
Smoking history noted
Smoking cessation, has quit within last 1 month
He is a chronic everyday drinker, 3 large beers daily, last drink was 2 days ago [employer]
Observe for signs of w/d
MSAS PRN
Thiamine/folate
Weight loss noted
Dietary consulted
Cachectic appearing
Will need outpatient pulmonary evaluation in our office for PFTs and 6MWT
Reviewed with patient
Overall prognosis appears poor, may need to consider GOC discussions pending results of path
We will follow
Total time spent today was 35 minutes for this encounter. Time includes reviewing laboratory test/imaging results, reviewing pertinent medical records, obtaining and reviewing medical history, performing an appropriate exam, ordering medications,
tests and procedures. Time also includes documentation of this encounter, coordinating patient care and communicating with other healthcare professionals. Total time does not include separately billed tests performed on this date of service.
Diagnostic Data
Chest X-Ray: 11/20/23- Dense opacification of the entire right hemithorax. Numerous differential diagnostic possibilities some of which include pleural effusion, mass and parenchymal consolidation.
Nonspecific reticular interstitial opacities throughout the left lung. No findings to suggest mediastinal shift.
CT Scan: 11/20/23- Large right pleural effusion with complete collapse of the right lung, findings resulting in complete opacification of the right hemithorax. There is slight shift of the mediastinum toward the left. Subtle thickened enhancement of
the periphery of the right pleural space, especially inferiorly, which is suggestive of malignant right pleural effusion. Within the interlobar right pulmonary artery, there is an ovoid filling defect, with main differential considerations of bland
clot/thrombus, versus tumor thrombus extending into the lumen of the right pulmonary artery. Numerous nodular opacities throughout the left lung, with a region of greater confluence in the medial aspect of the left lower lobe. Findings are felt to
most likely represent neoplasia. Diffuse infection is a differential consideration, but felt to be less likely. There is a minimal left effusion, posteromedially. Lymphadenopathy in the AP window and left hilar region, highly suspicious for
neoplastic lymphadenopathy.
No convincing evidence for bony metastatic disease. Slightly enlarged lymph nodes in the gastrohepatic ligament region of the upper abdomen, suspicious for neoplastic lymphadenopathy.
Echo:
PFT's:
Reports and relevant images were personally reviewed.
-----
Subjective Data
-
Date of Service:
Date of Service: November 23, 2023
Chief Complaint: Pulmonary Follow Up
Subjective:
Patient seen and evaluated today at bedside. He has a dry cough with coughing spells and chest pressure. He is on room air breathing complete. Denies headache, abdominal pain, fevers or chills.
Review of Systems
General: Other (Negative unless mentioned above)
Objective Data
Data Reviewed
Vital Signs / I&O / Oxygen:
Vital Signs
Temp Pulse Resp BP Pulse Ox
97.3 F 60 18 123/74 97
11/23/23 07:15 11/23/23 07:15 11/23/23 07:15 11/23/23 07:15 11/23/23 07:15
Intake and Output
11/22/23 11/23/23 11/24/23
06:59 06:59 06:59
Intake Total 1174 / 1174 600 / 600
Output Total 100 / 100 200 / 200
Balance 1074 / 1074 400 / 400
SaO2 97
Physical Exam
General: Respiratory Distress (negative), Comfortable and Other (Cachectic appearing/chronically ill, flat affect)
HEENT: Normocephalic and Anicteric
Cardiovascular: S1-S2 and Peripheral Edema (negative)
Respiratory: Wheeze (negative), Crackles (negative), Rhonchi (negative) and Other (Reduced breath sounds in the right hemithorax)
GI: Soft, Non Distended, Non Tender and Normal Bowel Sounds
Neurology: Awake and Alert
Skin: Warm and Dry
Labs/Micro/Reports
Lab Data
11/23/23 06:27
11/23/23 06:27
Laboratory Results
11/22/23 11/23/23 11/23/23
18:19 01:31 10:05
APTT 77.0 H 142.2 H 54.7 H
Microbiology
11/21/23 13:15 Pleural Fluid Body Fluid Culture - Preliminary
No Growth After 18-24 Hours
11/21/23 13:15 Pleural Fluid Gram Stain - Preliminary
11/21/23 13:16 Pleural Fluid Fungal Culture - Preliminary
Culture in progress.
Positive cultures are reported as soon as detected.
Final report to follow in four to five weeks.
11/21/23 04:34 Nose MRSA Screen - Final
No Methicillin Resistant Staphylococcus aureus isolated.
[2023-11-23] MEDS: HEPARIN 3600 UNITS IV (11:13)
[2023-11-23] MEDS: HEPARIN 25000 UNITS/250 ML IV (13:19)
[2023-11-23 15:41] VITALS: BP 105/72
[2023-11-23 15:53] LABS: Free T4 0.57 ng/dl (0.78-2.19)
[2023-11-23 17:38] LABS: APTT 235.1 Sec (23.4-35.0)
[2023-11-23] MEDS: TESSALON PERLES 200 MG PO (20:57)
--- NOTE | 2023-11-23 21:29 | PTCARENOTE ---
Pt w/ abscess/cyst to R shoulder blade. Removed bandaid from outpt - active purulent drainage. Foam dressing placed on pt.
[2023-11-23 23:42] VITALS: BP 103/67
[2023-11-24] VITALS (7 sets, daily range): BP systolic 72–129; BP diastolic 53–75
[2023-11-24] MEDS: ZOSYN 50 IV ×4 (01:20→20:15)
[2023-11-24 01:54] LABS: APTT 91.7 Sec (23.4-35.0)
[2023-11-24] MEDS: SYNTHROID 25 MCG PO (05:57)
[2023-11-24] MEDS: OMNIPAQUE 50 ML PO (05:58)
[2023-11-24 08:36] LABS: APTT 65.5 Sec (23.4-35.0)
--- NOTE | 2023-11-24 09:21 | W.PN.HOSP.TC ---
Addendum entered and electronically signed by Namita Frances MD 11/24/23 14:33:
I saw and evaluated the patient independently. I reviewed the resident�s note and agree with findings and plan as documented by Dr. Santos.
GENERAL: frail, cachectic appearing male in no apparent distress
HEENT: no O2
HEART: regular rate and rhythm, +S1, +S2
LUNGS : decreased BS right lung field with minimal air movement improvement to right lung, crackles left lung
ABDOM: soft, nontender, nondistended, + bowel sounds
EXT: no cyanosis, clubbing, or edema
NEUROLOGIC: grossly intact
highly suspicious for malignant pleural effusion (source of cancer unknown)--SOB for at least 4 weeks--(with smoking hx, weight loss, possibly lung cancer)--apprec pulm/IR input--s/p thoracentesis with 2250mls out, exudate--for repeat thoracentesis
11/23--cont zosyn for better anaerobic coverage--pulm ordered CT scan for staging (pleural effusions, innumerable lung nodules, LAD, lytic bone lesions)--will need onc consult but have no definitive tissue diagnosis
hypokalemia--replete as needed
Alcohol abuse--says stopped 7 days prior to admission--no signs of withdrawal--cont MSAS protocol
likely severe protein calorie malnutrition--BMI 17
hypothyroid--TSH 35, free T4 0.57 L-- started levothyroxine at 25mcg---recheck TFTs in 4 weeks
cyst on shoulder (sister reports pt had for 15 years)--consult wound care
code status -- full code
Original Note:
Today's Communication/Plan
-
Pending fluid cytology--consider repeat thoracocentesis-ABD/pelvic CT scan
Assessment / Plan
Assessment / Plan
Patient is 68-year-old male
SOB for at least 4 weeks--significant right sided pleural effusion (with smoking hx, weight loss) likely malignant--apprec pulm/IR input--s/p thoracentesis with 2250mls out---fluid studies in favor of malignancy cytology pending--- started zosyn for
better anaerobic coverage (possible postobstructive PNA)
apprec pul consult: Consider Pleurx catheter given this is likely a malignant effusion, GOC discussion, Check Ct Abd/Pelvis to eval for distant mets, Oncology consult
elevated PTT: held heparin drop for 2hrs, initiated with lower dose-- monitor PTT per protocol
Alcohol abuse--says stopped 7 days ago--no signs of withdrawal--cont MSAS protocol
likely severe protein calorie malnutrition--BMI 17--possible dietary consultation
hypothyroid--TSH 35-- started levothyroxine at 25mcg--check free T4 in AM--recheck TFTs in 4 weeks
code status -- full code
updated sister at bedside
Anticipated Discharge: 24 - 48 hours
Subjective/Interval History
-
Date of Service: November 24, 2023
Patient was not in room at the time of visit due to doing abdominal pelvis CT scan. Will visit again later in the morning
Objective Data
-
Labs:
Laboratory Results
11/23/23 11/24/23 11/24/23
23:00 01:19 07:39
APTT Cancelled 91.7 H 65.5 H
Vital Signs:
Vital Signs
Temp Pulse Resp BP Pulse Ox
98.1 F 60 16 111/72 96
11/24/23 07:36 11/24/23 07:36 11/24/23 07:36 11/24/23 07:36 11/24/23 07:36
I&O
11/23/23 11/24/23 11/25/23
06:59 06:59 06:59
Intake Total 600 / 600 1736 / 1736
Output Total 200 / 200 100 / 100
Balance 400 / 400 1636 / 1636
Review of Systems
-
History Source: Patient
All other systems: Reviewed and negative
Constitutional: Reports Weight Loss and No Appetite
Respiratory: Reports Trouble Breathing and Pleurisy
Physical Exam
-
General: Well Developed
HEENT: Normocephalic and Atraumatic
Respiratory: Crackles and Decreased Breath Sounds
Cardiac: Regular Rhythm and S1/S2
Musculoskeletal: No Clubbing, No Cyanosis and No Edema
Neuro: Awake, Alert and Oriented
Hematologic / Lymphatic: No Lymphadenopathy
Psych: Calm
Data Reviewed
-
Total Time Spent with Patient (in minutes): 30
--- NOTE | 2023-11-24 09:30 | PTCARENOTE ---
Resident Danielle made aware of pt. cystic wound on right upper shoulder. No new orders at this time.
[2023-11-24] MEDS: HEPARIN 1800 UNITS IV (09:37)
[2023-11-24] MEDS: FOLVITE 1 MG PO (09:38)
[2023-11-24] MEDS: VITAMIN B1 100 MG PO ×2 (09:38→20:15)
--- NOTE | 2023-11-24 12:39 | W.PN.PUL3 ---
Today's Communication / Plan
-
Thoracentesis on 11/22/2023 removed 2.25 L of dark brown pleural exudative fluid --> cytology shows metastatic adenocarcinoma of lung origin
Consider Pleurx catheter given this is a malignant pleural effusion - this can be done just prior to discharge
Recommend outpatient palliative care referral (which he can still do even if he decides to pursue hospice)
Pain control
Dietary consultation
Oncology consulted and recs appreciated --> pt would not tolerate systemic therapy given his ECOG status.
Recommend GOC discussion and see if pt amenable to Pleurx catheter and hospice
Assessment
-
Patient is a 68-year-old male with known history of a prior stroke, hypertension, alcohol abuse and a former smoker who quit 25 days ago brought to the hospital by his niece for evaluation of the shortness of breath and weight loss. He notes that
this has been progressive for the past year in which he had had decreasing appetite, weight loss, SOB and weakness. In ER, CXR and CT chest showing total right sided 'white out' indicating possible effusion or atelectasis with possible R sided
thrombus. He is started on abx and IV heparin. We are consulted for eval 11/21/23.
Impression:
Total 'white out', R sided atelectasis due to large right-sided malignant pleural effusion in the setting of stage IV metastatic lung adenocarcinoma
R sided PE with concern for tumor thrombus
Malignant R-sided pleural effusion with stage IV NSCLC (adenocarcinoma)
Innumerable small left sided pulmonary nodules with left suprahilar/hilar lymphadenopathy due to metastatic disease
Intra-abdominal/retroperitoneal lymphadenopathy due to metastatic disease with the largest in the periaortic region measuring 12 x 10 mm
SOB
Weight loss, decreased appetite
Cachexia
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
Hypertension
Stroke
Prostate cancer
Chronic alcohol abuse
Former Smoker
Plan
No oxygen was needed on admission, currently saturating >90% on RA
Denies known history of lung disease. He has a history of prostate cancer in the past.
There is family history of pancreatic cancer in his father.
Has been smoking 1PPD since 12 years old, quit ~1 month ago.
Patient has underlying R-sided malignant effusion --> cytology from thoracentesis performed on 11/22/2023 shows metastatic adenocarcinoma, compatible with lung primary origin
Due to possible component of postobstructive pneumonia, continue with Zosyn and would give 7 days antibiotics total assuming he remains afebrile for 48 hours prior
Patient underwent repeat thoracentesis today removing 1.4 L of dark brown exudative pleural fluid; consider pleurX, rebecca as given patient's poor functional status, I do not believe he is a candidate for chemo anyway and his treatment for suspected
cancer will likely be largely palliative - Oncology agrees
Recommend outpatient palliative care consultation
Other imaging reviewed-CT also showing possible PE vs tumor
Started on IV heparin --> would transition to Eliquis after pt gets PleurX catheter, assuming he is amenable to this
Smoking history noted
Smoking cessation, has quit within last 1 month
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
Observe for signs of w/d
MSAS PRN
Thiamine/folate
Weight loss noted
Dietary consulted
Cachectic appearing
Will need outpatient pulmonary evaluation in our office for PFTs and 6MWT
Reviewed with patient
Overall prognosis appears poor, may need to consider GOC discussions pending results of path
We will follow
Total time spent today was 35 minutes for this encounter. Time includes reviewing laboratory test/imaging results, reviewing pertinent medical records, obtaining and reviewing medical history, performing an appropriate exam, ordering medications,
tests and procedures. Time also includes documentation of this encounter, coordinating patient care and communicating with other healthcare professionals. Total time does not include separately billed tests performed on this date of service.
Diagnostic Data
Chest X-Ray 11-20-23- Dense opacification of the entire right hemithorax. Numerous differential diagnostic possibilities some of which include pleural effusion, mass and parenchymal consolidation.
Nonspecific reticular interstitial opacities throughout the left lung. No findings to suggest mediastinal shift.
CT Chest with IV Contrast 11-20-2023- Large right pleural effusion with complete collapse of the right lung, findings resulting in complete opacification of the right hemithorax. There is slight shift of the mediastinum toward the left. Subtle
thickened enhancement of the periphery of the right pleural space, especially inferiorly, which is suggestive of malignant right pleural effusion. Within the interlobar right pulmonary artery, there is an ovoid filling defect, with main differential
considerations of bland clot/thrombus, versus tumor thrombus extending into the lumen of the right pulmonary artery. Numerous nodular opacities throughout the left lung, with a region of greater confluence in the medial aspect of the left lower
lobe. Findings are felt to most likely represent neoplasia. Diffuse infection is a differential consideration, but felt to be less likely. There is a minimal left effusion, posteromedially. Lymphadenopathy in the AP window and left hilar region,
highly suspicious for neoplastic lymphadenopathy.
No convincing evidence for bony metastatic disease. Slightly enlarged lymph nodes in the gastrohepatic ligament region of the upper abdomen, suspicious for neoplastic lymphadenopathy.
CT Abd/Pelvis with IV Contrast 11-24-2023:
Interval increase in now small left pleural effusion. Large right pleural effusion with complete atelectasis of the visualized right lung is unchanged. Innumerable bilateral lung nodules are unchanged as well.
2 subcentimeter low-density liver lesions which are too small to characterize, and may represent benign hemangiomas or small metastases.
A few enlarged inferior mediastinal and upper abdominal lymph nodes suspicious for metastatic disease. A few prominent retroperitoneal lymph nodes are present as well, the largest in the left periaortic region measuring 12 x 10 mm on axial image 29.
1.4 cm lytic lesion in the left iliac bone (axial images 48-49) suspicious for osseous metastatic disease.
Recommend further evaluation with PET/CT for definitive staging.
Pathology:
Pleural fluid, right thorax, thoracentesis
Positive for malignant cells.
Metastatic adenocarcinoma, compatible with lung primary origin
Reports and relevant images were personally reviewed.
-----
Subjective Data
-
Date of Service:
Date of Service: November 24, 2023
Chief Complaint: Pulmonary Follow Up
Subjective:
Patient seen and evaluated today at bedside. Underwent repeat thoracentesis today removing 1.4 L of dark brown pleural exudative fluid but this caused him to have chest pain. He remains on room air saturating 96% and is breathing comfortably when
I saw him. He denies headache, abdominal pain, nausea, fevers or chills.
Review of Systems
General: Other (Negative unless mentioned above)
Objective Data
Data Reviewed
Vital Signs / I&O / Oxygen:
Vital Signs
Temp Pulse Resp BP Pulse Ox
98.1 F 60 16 111/72 96
11/24/23 07:36 11/24/23 07:36 11/24/23 07:36 11/24/23 07:36 11/24/23 09:00
Intake and Output
11/23/23 11/24/23 11/25/23
06:59 06:59 06:59
Intake Total 600 / 600 1736 / 1736
Output Total 200 / 200 100 / 100
Balance 400 / 400 1636 / 1636
SaO2 96
Physical Exam
General: Respiratory Distress (negative), Comfortable and Other (Cachectic appearing/chronically ill, flat affect)
HEENT: Normocephalic and Anicteric
Cardiovascular: S1-S2 and Peripheral Edema (negative)
Respiratory: Wheeze (negative), Crackles (Right hemithorax), Rhonchi (negative) and Other (Reduced breath sounds in the right hemithorax)
GI: Soft, Non Distended, Non Tender and Normal Bowel Sounds
Neurology: Awake and Alert
Skin: Warm and Dry
Labs/Micro/Reports
Lab Data
11/23/23 06:27
11/23/23 06:27
Laboratory Results
11/23/23 11/23/23 11/24/23
16:56 23:00 01:19
APTT 235.1 H* Cancelled 91.7 H
11/24/23
07:39
APTT 65.5 H
Microbiology
11/21/23 13:15 Pleural Fluid Body Fluid Culture - Preliminary
No Growth After 48 Hours
11/21/23 13:15 Pleural Fluid Gram Stain - Preliminary
11/21/23 13:16 Pleural Fluid Fungal Culture - Preliminary
Culture in progress.
Positive cultures are reported as soon as detected.
Final report to follow in four to five weeks.
11/21/23 04:34 Nose MRSA Screen - Final
No Methicillin Resistant Staphylococcus aureus isolated.
[2023-11-24] MEDS: TYLENOL 650 MG PO (14:50)
--- NOTE | 2023-11-24 14:52 | CM ---
Patient seen at bedside yesterday with physician. Patient uncertain of discharge plan, depending upon results of testing. Patient out of room today for IR procedure. Patient plan depending upon medical treatment plan. CM will continue to follow for
discharge planning needs.
Plan; home with VN vs SNF
[2023-11-24 15:03] LABS: Body Fluid pH 7.38
[2023-11-24 15:16] LABS: Body Fluid Amylase 73 U/L; Body Fluid Glucose 64 mg/dl; Body Fluid LDH 813 U/L; Body Fluid Protein 2.6 g/dl; Body Fluid Triglycerides < 30 mg/dl
--- NOTE | 2023-11-24 15:43 | CON.ONC ---
Impression
Impression
Large pleural effusion, cytology revealing adenocarcinoma compatible with lung primary
Apparent contralateral metastatic disease
Profound weight loss
Poor performance status, ECOG 3�4
Plan
Plan
Given his profound weight loss and weakness, it appears that he may not be a candidate for any form of systemic therapy. Agree with tentative plans for Pleurx catheter. I had a fairly lengthy discussion with him and his sister regarding the lack
of treatment options in his current state. They seem to have a reasonable understanding of this.
Patient History
History of Present Illness
Consult from Dr. Frances regarding lung cancer
This 68-year-old man was admitted because of breathing difficulties and weakness. He states he has been losing quite a bit of weight, at least 25 pounds in the last 3 months. He was growing weaker at home to the point where he is having difficulty
even getting to the bathroom on his own. He also noted progressive breathing difficulties, although he is oxygenating fairly well here at rest with 90% saturation. Evaluation showed a white out on the right chest, predominantly a huge pleural
effusion. He underwent thoracentesis, cytology reveals adenocarcinoma compatible with a lung primary. There were some scattered areas on the left lung that were suggestive of metastatic disease as well, as well as 1 possible bone lesion. He has
been a smoker his entire adult life. He lives by himself, and as mentioned, his profoundly weak, and unable to care for himself at this point.
Past-Medical/Surgical History
He has a remote history of prostate cancer, roughly 15 years ago, treated with radiation therapy.
Social history: Lifelong smoker.
Family history is noncontributory.
Patient Medication
�Medication �Instructions �Recorded �Confirmed �Last Taken �Type
No Meds [No Current Medications] 11/20/23 11/20/23 Unknown History
Active Medications
Generic Name Dose Route Start Last Admin
Trade Name Freq PRN Reason Stop Dose Admin
Acetaminophen 650 mg 11/20/23 22:46 11/24/23 14:50
Acetaminophen 325 Mg Tablet PO 12/18/23 22:45 650 mg
Q4HPRN PRN Administration
mild pain/RICCI/temp> 100.4F
Albuterol/Ipratropium 3 ml 11/22/23 12:38 11/22/23 15:31
Ipratropium 0.5/Albuterol 3 Mg (3 Ml Ampul) INH 3 ml
R Q4HPRN PRN Administration
SOB/cough/wheeze
Protocol
Benzonatate 200 mg 11/22/23 12:38 11/23/23 20:57
Benzonatate 100 Mg Capsule PO 12/20/23 12:37 200 mg
TIDPRN PRN Administration
cough
Bisacodyl 10 mg 11/20/23 22:46
Bisacodyl 10 Mg Rectal Suppository RECTAL 12/18/23 22:45
[id number] PRN
constipation
Folic Acid 1 mg 11/21/23 08:00 11/24/23 09:38
Folic Acid 1 Mg Tablet PO 12/19/23 07:59 1 mg
DAILY ROLA Administration
Heparin Sodium 3,600 units 11/20/23 21:39 11/23/23 11:13
Heparin 80 Units/Kg Iv Rebolus IV 12/18/23 21:38 3,600 units
PRN PRN Administration
PTT < OR = 64 seconds
Heparin Sodium 1,800 units 11/20/23 21:40 11/24/23 09:37
Heparin 40 Units/Kg Iv Rebolus IV 12/18/23 21:39 1,800 units
PRN PRN Administration
PTT = 64.1 to 72.9 seconds
Heparin Sodium 25,000 units in 250 mls @ 0 mls/hr 11/20/23 21:15 11/23/23 13:19
Heparin 81325 Units/250 Ml IV 250 mls
PER PROTOCOL ROLA Administration
Protocol
Per Protocol
Folic Acid 1 mg/ Sodium 50.2 mls @ 200.8 mls/hr 11/20/23 22:46
Chloride IV 12/18/23 22:45
DAILYPRN PRN
if NPO
Piperacillin Sod/Tazobactam Sod 3.375 gram in 50 mls @ 100 mls/hr 11/22/23 20:00 11/24/23 14:51
Zosyn IV 50 mls
Q6H ROLA Administration
Levothyroxine Sodium 25 mcg 11/23/23 06:00 11/24/23 05:57
Levothyroxine 25 Mcg Tablet PO 12/21/23 05:59 25 mcg
DAILY @ 0600 ROLA Administration
Lorazepam 1 mg 11/20/23 22:46
Lorazepam 1 Mg Tablet PO 12/18/23 22:45
Q2HPRN PRN
MSAS 5-7
Lorazepam 1 mg 11/20/23 22:46
Lorazepam 2 Mg/Ml Vial IV 12/18/23 22:45
Q1HPRN PRN
MSAS 8-11
Lorazepam 2 mg 11/20/23 22:46
Lorazepam 2 Mg/Ml Vial IV 12/18/23 22:45
Q1HPRN PRN
MSAS > 11
Ondansetron HCl 4 mg 11/20/23 22:46
Ondansetron 4 Mg/2 Ml Vial IV 12/18/23 22:45
Q6HPRN PRN
nausea and vomiting
Oxycodone HCl 5 mg 11/24/23 15:41
Oxycodone 5 Mg Regular Release Tablet PO 12/08/23 15:40
Q4HPRN PRN
pain
Polyethylene Glycol 17 grams 11/20/23 22:46
Polyethylene Glycol Powder 17 Grams Packet PO 12/18/23 22:45
DAILYPRN PRN
constipation
Senna/Docusate Sodium 1 tablet 06/29/24 22:46
Docusate W/Senna (Allie-Colace) Tablet PO 12/18/23 22:45
BIDPRN PRN
constipation
Sodium Chloride 0 ml 11/20/23 22:46
Sodium Chloride 0.9% (Preservative Free) 10 Ml Vial IV 12/18/23 22:45
PRN PRN
To dilute IV Ativan
Protocol
Sodium Chloride 0 flush 11/20/23 23:00
Sodium Chloride 0.9% (Flush) Syringe IV 12/18/23 22:59
PER PROTOCOL ROLA
Thiamine HCl 100 mg 11/24/23 08:00 11/24/23 09:38
Thiamine 100 Mg Tablet PO 12/22/23 07:59 100 mg
BID ROLA Administration
Review of Systems
-
All Other Systems: Reviewed and Negative
Physical Exam
-
Physical examination shows the patient to be in no acute distress. However, he appears profoundly weak and cachectic.
HEENT exam is unremarkable.
There are no palpable nodes.
Chest is on the left, markedly diminished breath sounds on the right.
The heart is regular with no murmur or gallop.
The abdomen is soft and nontender with no organomegaly or masses.
Extremities are unremarkable.
Neurologic is grossly intact.
Labs
Lab Results
WBC 5.3 10^3/uL (4.8-10.8) 11/23/23 06:27
RBC 4.36 10^6/uL (4.70-6.10) L 11/23/23 06:
Hgb 13.2 g/dL (13.0-18.0) 11/23/23:
Hct 40.3 % (39.0-52.0) 11/23/23 06:27
MCV 92.4 fL (80.0-94.0) 11/23/23 06:
MCH 30.3 pg (27.0-31.0) 11/23/23 06:27
MCHC 32.8 g/dL (33.0-37.0) L 11/23/23 06:27
RDW 15.8 % (11.5-14.5) H 11/23/23 06:27
Plt Count 169 10^3/uL (130-400) 11/23/23 06:27
MPV 9.6 fL (7.4-10.4) 11/23/23 06:27
Abs Immat Gran (auto) 0.0 10^3/uL (0-0.05) 11/22/23 07:21
Absolute Neuts (auto) 4.5 10^3/uL (1.4-6.5) 11/22/23 07:21
Absolute Lymphs (auto) 0.6 10^3/uL (1.2-3.4) L 11/22/23 07:21
Absolute Monos (auto) 0.3 10^3/uL (0.1-0.6) 11/22/23 07:21
Absolute Eos (auto) 0.2 10^3/uL (0-0.7) 11/22/23 07:21
Absolute Basos (auto) 0.0 10^3/uL (0-0.2) 11/22/23 07:21
Immature Gran % 0.5 % (0-0.5) 11/22/23 07:21
Neutrophils % 79.4 % (42.2-75.2) H 11/22/23 07:21
Lymphocytes % 11.0 % (20.5-51.1) L 11/22/23 07:21
Monocytes % 5.3 % (1.7-9.3) 11/22/23 07:21
Eosinophils % 3.4 % (0-6) 11/22/23 07:21
Basophils % 0.4 % (0-2) 11/22/23 07:21
Creatinine 0.6 mg/dL (0.7-1.3) L 11/23/23 06:27
Vital Signs
Vital Signs
Temp Pulse Resp BP Pulse Ox
97.4 F 69 16 105/74 96
11/24/23 14:52 11/24/23 14:52 11/24/23 14:52 11/24/23 14:52 11/24/23 14:52
[2023-11-24 15:52] LABS: Body Fluid Mononuclear 62.1 %; Body Fluid Polymorphonuclear 37.9 %; Body Fluid WBC 1187 /CUMM
[2023-11-24] MEDS: ROXICODONE 5 MG PO (16:07)
[2023-11-24 16:09] LABS: Glucose 124 mg/dl (70-99); Total Protein 4.7 g/dl (6.3-8.2)
[2023-11-24 16:20] LABS: Body Fluid Second Tech HB
[2023-11-24 16:25] LABS: LDH 450 U/L (120-246)
[2023-11-24] MEDS: ATIVAN 0.25 MG IV (16:52)
[2023-11-24] MEDS: HEPARIN 3600 UNITS IV (17:32)
[2023-11-24] MEDS: HEPARIN 25000 UNITS/250 ML IV (19:36)
[2023-11-25 00:15] LABS: APTT > 200 Sec (23.4-35.0)
[2023-11-25] MEDS: ZOSYN 50 IV ×4 (02:09→20:10)
[2023-11-25] MEDS: SYNTHROID 25 MCG PO (05:40)
[2023-11-25 07:05] VITALS: BP 105/82
[2023-11-25 08:20] LABS: Hematocrit 38.7 % (39.0-52.0); Hemoglobin 13.1 g/dL (13.0-18.0); Mean Corp Hgb Conc. 33.9 g/dL (33.0-37.0); Mean Corpuscular Volume 91.7 fL (80.0-94.0); Mean Platelet Volume 9.8 fL (7.4-10.4); Platelet Count 158 10^3/uL (130-400); Red Blood Cell Count 4.22 10^6/uL (4.70-6.10); Red Cell Dist. Width 15.9 % (11.5-14.5)
[2023-11-25] MEDS: FOLVITE 1 MG PO (08:30)
[2023-11-25] MEDS: VITAMIN B1 100 MG PO ×2 (08:30→20:10)
[2023-11-25 09:02] LABS: ALT (SGPT) 15 U/L (0-50); AST (SGOT) 20 U/L (17-59); Albumin 2.2 g/dl (3.5-5.0); Alkaline Phosphatase 76 U/L (38-126); Blood Urea Nitrogen 7 mg/dl (9-20); Calcium 7.8 mg/dl (8.4-10.2); Carbon Dioxide 24 mmol/L (22-30); Chloride 102 mmol/L (98-107); Estimated Creatinine Clearance 76 ml/min; Glucose 85 mg/dl (70-99); Magnesium 2.2 mg/dl (1.6-2.3); Potassium 3.5 mmol/L (3.5-5.1); Sodium 131 mmol/L (135-145); Total Bilirubin 0.6 mg/dl (0.2-1.3); Total Protein 4.4 g/dl (6.3-8.2); eGFR > 60.00
[2023-11-25 09:33] LABS: PSA, Total - Diagnostic 0.11 ng/ml (0.0-4.0)
[2023-11-25 09:40] LABS: APTT 165.4 Sec (23.4-35.0)
--- NOTE | 2023-11-25 09:57 | PTCARENOTE ---
heparin gtt resulted at 165.4 per protocol gtt held for an hour. made aware and will restart heparin at 1057. proper charting documented on worklist
[2023-11-25] MEDS: TESSALON PERLES 200 MG PO (13:41)
[2023-11-25] MEDS: ROXICODONE 5 MG PO ×2 (13:41→20:09)
--- NOTE | 2023-11-25 13:43 | W.PN.HOSP.TC ---
Addendum entered and electronically signed by Namita Frances MD 11/25/23 14:31:
I saw and evaluated the patient independently. I reviewed the resident�s note and agree with findings and plan as documented by Dr. Santos.
GENERAL: frail, cachectic appearing male in no apparent distress
HEENT: no O2
HEART: regular rate and rhythm, +S1, +S2
LUNGS : decreased BS right lung field with minimal air movement improvement to right lung, crackles left lung
ABDOM: soft, nontender, nondistended, + bowel sounds
EXT: no cyanosis, clubbing, or edema
NEUROLOGIC: grossly intact
malignant pleural effusion (metastatic lung carcinoma)--SOB for at least 4 weeks---apprec pulm/IR input--s/p thoracentesis with 2250mls out, exudate-- repeat thoracentesis 7/3 1400 mls out again--cont zosyn for better anaerobic coverage--pulm
ordered CT scan for staging (pleural effusions, innumerable lung nodules, LAD, lytic bone lesions)--apprec onc now that we have tissue diagnosis--will discuss hospice with pt and sister tomorrow
hypokalemia--replete as needed
Alcohol abuse--says stopped 7 days prior to admission--no signs of withdrawal--cont MSAS protocol
likely severe protein calorie malnutrition--BMI 17
hypothyroid--TSH 35, free T4 0.57 L-- started levothyroxine at 25mcg---recheck TFTs in 4 weeks
cyst on shoulder (sister reports pt had for 15 years)--consult wound care
code status -- full code
Original Note:
Today's Communication/Plan
-
Wait until tomorrow after case management is back regarding plans for palliative/hospice care. Update his sister tomorrow.
Assessment / Plan
Assessment / Plan
Patient is 68-year-old male
SOB for at least 4 weeks--significant right sided pleural effusion (with smoking hx, weight loss)--repeat thoracentesis with 1400 mls out---fluid cytology revealed metastatic adenocarcinoma with lung origin--- continue zosyn for better anaerobic
coverage (possible postobstructive PNA)
apprec pul consult: Consider Pleurx catheter given ineligibility for systemic therapy, GOC discussion--- Consider outpatient palliative care referral
Ct Abd/Pelvis to eval for distant mets---A few enlarged inferior mediastinal and upper abdominal lymph nodes suspicious for metastatic disease. A few prominent retroperitoneal lymph nodes are present as well. 1.4 cm lytic lesion in the left iliac
bone suspicious for osseous metastatic disease.2 subcentimeter low-density liver lesions which are too small to characterize, and may represent benign hemangiomas or small metastases--consider further evaluation with PET/CT for definitive staging.
apprec oncology consult: may not be a candidate for any form of systemic therapy. Agree with tentative plans for Pleurx catheter--lengthy discussion with patient and his sister regarding the lack of treatment options in his current state.
elevated PTT: monitor PTT per protocol
Alcohol abuse: cont MSAS protocol
likely severe protein calorie malnutrition--BMI 17--possible dietary consultation
hypothyroid--TSH 35-- started levothyroxine at 25mcg--recheck TFTs in 4 weeks
code status -- full code
Anticipated Discharge: Within 24 hours
Subjective/Interval History
-
Date of Service: November 25, 2023
Patient is alert and oriented. He mentions chest pain has slightly improved. No other complaints.
Objective Data
-
Labs:
Laboratory Results
11/25/23 11/25/23 11/25/23
07:46 09:10 17:00
WBC 6.0
Hgb 13.1
Hct 38.7 L
Plt Count 158
APTT 165.4 H* Pending
Sodium 131 L
Potassium 3.5
Chloride 102
Carbon Dioxide 24
BUN 7 L
Creatinine 0.5 L
Glucose 85
Calcium 7.8 L
Total Bilirubin 0.6
AST 20
ALT 15
Alkaline Phosphatase 76
Vital Signs:
Vital Signs
Temp Pulse Resp BP Pulse Ox
97.5 F 76 20 105/82 96
11/25/23 07:05 11/25/23 07:05 11/25/23 07:05 11/25/23 07:05 11/25/23 07:05
I&O
11/24/23 11/25/23 11/26/23
06:59 06:59 06:59
Intake Total 1736 / 1736 490 / 490
Output Total 100 / 100 100 / 100
Balance 1636 / 1636 390 / 390
Review of Systems
-
History Source: Patient
All other systems: Reviewed and negative
Constitutional: Reports Weight Loss and Weakness
Respiratory: Reports Pleurisy
Physical Exam
-
General: Well Developed, Well Nourished, No Apparent Distress and Comfortable
HEENT: Normocephalic and Atraumatic
Respiratory: Crackles and Decreased Breath Sounds
Cardiac: Regular Rhythm, S1/S2 and Irregular Rhythm
GI: Nontender, Nondistended and Normal Bowel Sounds
Rectal: Brown
Genito-urinary: No Costovertebral Tender
Musculoskeletal: No Clubbing, No Cyanosis and No Edema
Skin: Warm and Dry
Neuro: Awake, Alert, Oriented and AO x 3
Hematologic / Lymphatic: No Lymphadenopathy
Psych: Calm
Data Reviewed
-
Total Time Spent with Patient (in minutes): 30
[2023-11-25] MEDS: ATIVAN 0.25 MG IV ×2 (13:50→23:46)
[2023-11-25] MEDS: NSS (PRESERVATIVE FREE) 0.125 ML IV ×2 (13:51→23:51)
--- NOTE | 2023-11-25 14:06 | W.PN.PUL3 ---
Today's Communication / Plan
-
Consider palliative care evaluation, hospice evaluation
Not sure antibiotics will help in the short-term
May consider Pleurx catheter but this would be purely palliative
Continue heparin therapy for now pending decision on goals of care
Assessment
-
Patient is a 68-year-old male with known history of a prior stroke, hypertension, alcohol abuse and a former smoker who quit 25 days ago brought to the hospital by his niece for evaluation of the shortness of breath and weight loss. He notes that
this has been progressive for the past year in which he had had decreasing appetite, weight loss, SOB and weakness. In ER, CXR and CT chest showing total right sided 'white out' indicating possible effusion or atelectasis with possible R sided
thrombus. He is started on abx and IV heparin. We are consulted for eval 11/21/23.
Impression:
Total 'white out', R sided atelectasis due to large right-sided malignant pleural effusion in the setting of stage IV metastatic lung adenocarcinoma
R sided PE with concern for tumor thrombus
Malignant R-sided pleural effusion with stage IV NSCLC (adenocarcinoma)
Innumerable small left sided pulmonary nodules with left suprahilar/hilar lymphadenopathy due to metastatic disease
Intra-abdominal/retroperitoneal lymphadenopathy due to metastatic disease with the largest in the periaortic region measuring 12 x 10 mm
SOB
Weight loss, decreased appetite
Cachexia
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
Hypertension
Stroke
Prostate cancer
Chronic alcohol abuse
Former Smoker
Plan/recommendations
Patient states breathing and chest pain have improved since thoracentesis yesterday
Presently appears comfortable
Hungry for breakfast
Remains on room air
No oxygen was needed on admission, currently saturating >90% on RA
Denies known history of lung disease. He has a history of prostate cancer in the past.
There is family history of pancreatic cancer in his father.
Patient is status post right thoracentesis 11/22/2023 consistent with metastatic adenocarcinoma, primary lung
Underwent a repeat right thoracentesis 11/24/2023, 1.4 L fluid drained
Per exam, still has significant fluid on the right side, likely will recover quickly
Unfortunately, therapeutic options are lacking
Recommend outpatient palliative care consultation, hospice
This was reviewed with the patient
He also recalls hearing this conversation with oncology
Other imaging reviewed-CT also showing possible PE vs tumor
Started on IV heparin --> would transition to Eliquis after pt gets PleurX catheter, assuming he is amenable to this
Presently remains on heparin therapy
Smoking history noted
Smoking cessation, has quit within last 1 month
He is a chronic everyday drinker, 3 large beers daily, last drink was 2 days ago [employer]
Observe for signs of w/d
MSAS PRN
Thiamine/folate
Weight loss noted
Dietary consulted
Cachectic appearing
Overall prognosis appears poor
Consider palliative care evaluation, hospice evaluation
We will follow
Diagnostic Data
Chest X-Ray 11-20-23- Dense opacification of the entire right hemithorax. Numerous differential diagnostic possibilities some of which include pleural effusion, mass and parenchymal consolidation.
Nonspecific reticular interstitial opacities throughout the left lung. No findings to suggest mediastinal shift.
CT Chest with IV Contrast 11-20-2023- Large right pleural effusion with complete collapse of the right lung, findings resulting in complete opacification of the right hemithorax. There is slight shift of the mediastinum toward the left. Subtle
thickened enhancement of the periphery of the right pleural space, especially inferiorly, which is suggestive of malignant right pleural effusion. Within the interlobar right pulmonary artery, there is an ovoid filling defect, with main differential
considerations of bland clot/thrombus, versus tumor thrombus extending into the lumen of the right pulmonary artery. Numerous nodular opacities throughout the left lung, with a region of greater confluence in the medial aspect of the left lower
lobe. Findings are felt to most likely represent neoplasia. Diffuse infection is a differential consideration, but felt to be less likely. There is a minimal left effusion, posteromedially. Lymphadenopathy in the AP window and left hilar region,
highly suspicious for neoplastic lymphadenopathy.
No convincing evidence for bony metastatic disease. Slightly enlarged lymph nodes in the gastrohepatic ligament region of the upper abdomen, suspicious for neoplastic lymphadenopathy.
CT Abd/Pelvis with IV Contrast 11-24-2023:
Interval increase in now small left pleural effusion. Large right pleural effusion with complete atelectasis of the visualized right lung is unchanged. Innumerable bilateral lung nodules are unchanged as well.
2 subcentimeter low-density liver lesions which are too small to characterize, and may represent benign hemangiomas or small metastases.
A few enlarged inferior mediastinal and upper abdominal lymph nodes suspicious for metastatic disease. A few prominent retroperitoneal lymph nodes are present as well, the largest in the left periaortic region measuring 12 x 10 mm on axial image 29.
1.4 cm lytic lesion in the left iliac bone (axial images 48-49) suspicious for osseous metastatic disease.
Recommend further evaluation with PET/CT for definitive staging.
Pathology:
Pleural fluid, right thorax, thoracentesis
Positive for malignant cells.
Metastatic adenocarcinoma, compatible with lung primary origin
Reports and relevant images were personally reviewed.
-----
Subjective Data
-
Date of Service:
Date of Service: November 25, 2023
Chief Complaint: Pulmonary Follow Up
Subjective:
Patient examined earlier this morning. Complaining of shortness of breath and mild chest discomfort but feels chest pain is since resolved. Has mild cough. Denies hemoptysis, nausea, abdominal pain. Hungry for breakfast
Objective Data
Data Reviewed
Vital Signs / I&O / Oxygen:
Vital Signs
Temp Pulse Resp BP Pulse Ox
97.5 F 76 20 105/82 96
11/25/23 07:05 11/25/23 07:05 11/25/23 07:05 11/25/23 07:05 11/25/23 07:05
Intake and Output
11/24/23 11/25/23 11/26/23
06:59 06:59 06:59
Intake Total 1736 / 1736 490 / 490
Output Total 100 / 100 100 / 100
Balance 1636 / 1636 390 / 390
SaO2 96
Physical Exam
General: Comfortable and Other (Cachectic appearing/chronically ill, flat affect)
HEENT: Normocephalic and Anicteric
Cardiovascular: S1-S2, Regular Rhythm, Murmur (n), Rub (n), Peripheral Edema (negative) and Calf Tenderness (n)
Respiratory: Wheeze (negative), Crackles (Right base), Rhonchi (negative), Non-Labored Respirations, Stridor (n) and Other (Reduced breath sounds in the right hemithorax)
GI: Soft, Non Distended, Non Tender and Normal Bowel Sounds
Neurology: Awake, Alert and No Motor Deficits (Moves all extremities)
Skin: Warm, Cyanosis (n), Jaundice (n) and Rash (n)
Labs/Micro/Reports
Lab Data
11/25/23 07:46
11/25/23 07:46
Laboratory Results
11/24/23 11/24/23 11/25/23
15:32 23:42 09:10
APTT 63.0 H > 200 H* 165.4 H*
Microbiology
11/24/23 13:11 Pleural Fluid Body Fluid Culture - Preliminary
No Growth After 18-24 Hours
11/24/23 13:11 Pleural Fluid Gram Stain - Preliminary
11/21/23 13:15 Pleural Fluid Body Fluid Culture - Final
No Growth After 72 Hours
11/21/23 13:15 Pleural Fluid Gram Stain - Final
11/21/23 13:15 Pleural Fluid Acid Fast Bacilli Smear - Preliminary
11/21/23 13:15 Pleural Fluid Acid Fast Bacilli Culture - Preliminary
11/21/23 13:16 Pleural Fluid Fungal Culture - Preliminary
Culture in progress.
Positive cultures are reported as soon as detected.
Final report to follow in four to five weeks.
[2023-11-25 15:20] VITALS: BP 114/68
--- NOTE | 2023-11-25 17:07 | PTCARENOTE ---
p given prn tesslon pearles, prn ativan and prn pascual this afternoon. pt very anxious even with family at the bedside, and was verbalizing pain. pt with strong harsh nonproductive cough at bedside. see MAR for proper documentation
[2023-11-25 17:26] LABS: APTT 76.1 Sec (23.4-35.0)
[2023-11-25 23:29] VITALS: BP 107/73
[2023-11-25] MEDS: ROBITUSSIN DM 5 ML PO (23:52)
[2023-11-25 23:56] LABS: APTT 86.6 Sec (23.4-35.0)
[2023-11-25] MEDS: HEPARIN 25000 UNITS/250 ML IV (23:59)
[2023-11-26] MEDS: ZOSYN 50 IV ×2 (02:50→08:09)
[2023-11-26] MEDS: ROXICODONE 5 MG PO ×3 (04:36→23:35)
[2023-11-26] MEDS: SYNTHROID 25 MCG PO (04:37)
[2023-11-26] MEDS: ROBITUSSIN DM 5 ML PO (04:37)
[2023-11-26 06:56] LABS: APTT 82.5 Sec (23.4-35.0)
[2023-11-26 07:00] VITALS: BP 102/67
[2023-11-26] MEDS: FOLVITE 1 MG PO (08:09)
[2023-11-26] MEDS: VITAMIN B1 100 MG PO ×2 (08:09→20:43)
--- NOTE | 2023-11-26 08:59 | PTCARENOTE ---
pt is a 1-2x assist bedbound in the room CC #25 intact draining dark yellow urine. pt incontinent of stool and currently on heparin gtt running at 8ml/hr. Last three PTT results are within therapeutic range. pt has consult for palliative/hospice
care today
--- NOTE | 2023-11-26 10:32 | W.PN.PUL3 ---
Today's Communication / Plan
-
Consider outpatient palliative care evaluation
Patient is awaiting enrollment into hospice, does need to figure out if he will do this at home versus hospital versus another institution
Stop antibiotics + systemic anticoagulation
Discussed Pleurx with the patient but he has decided not to go through with this
No additional recommendations at this time from pulmonary service. Pulmonary service will now sign off. Please reconsult if there are any additional questions/concerns, or if patient's respiratory status deteriorates.
Assessment
-
Patient is a 68-year-old male with known history of a prior stroke, hypertension, alcohol abuse and a former smoker who quit 25 days ago brought to the hospital by his niece for evaluation of the shortness of breath and weight loss. He notes that
this has been progressive for the past year in which he had had decreasing appetite, weight loss, SOB and weakness. In ER, CXR and CT chest showing total right sided 'white out' indicating possible effusion or atelectasis with possible R sided
thrombus. He is started on abx and IV heparin. We are consulted for eval 11/21/23.
Impression:
Total 'white out', R sided atelectasis due to large right-sided malignant pleural effusion in the setting of stage IV metastatic lung adenocarcinoma
R sided PE with concern for tumor thrombus
Malignant R-sided pleural effusion with stage IV NSCLC (adenocarcinoma)
Innumerable small left sided pulmonary nodules with left suprahilar/hilar lymphadenopathy due to metastatic disease
Intra-abdominal/retroperitoneal lymphadenopathy due to metastatic disease with the largest in the periaortic region measuring 12 x 10 mm
SOB
Weight loss, decreased appetite
Cachexia
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
Hypertension
Stroke
Prostate cancer
Chronic alcohol abuse
Former Smoker
Plan/recommendations
Patient states breathing and chest pain have improved since thoracentesis 2 days ago
Patient still tachypneic both at rest and with mild activity
Remains on room air
No oxygen was needed on admission, currently saturating >90% on RA
Denies known history of lung disease. He has a history of prostate cancer in the past.
There is family history of pancreatic cancer in his father.
Patient is status post right thoracentesis 11/22/2023 consistent with metastatic adenocarcinoma, primary lung
Underwent a repeat right thoracentesis 11/24/2023, 1.4 L fluid drained
Per exam, still has significant fluid on the right side, likely will recover quickly
Unfortunately, therapeutic options are lacking and he would be unlikely to tolerate systemic therapy regardless due to poor functional status
Recommend outpatient palliative care consultation, hospice
This was reviewed with the patient
He also recalls hearing this conversation with oncology
Other imaging reviewed-CT also showing possible PE vs tumor
Started on IV heparin --> would transition to Eliquis after pt gets PleurX catheter, assuming he is amenable to this -I spoke to the patient today about getting a Pleurx catheter but he wishes to think more about it. I told him that it would offer
him the opportunity to have more valuable time at home with himself and his family, and he would be taught how to drain the fluid at home as well. He still wishes to think about this more.
Systemic AC was stopped; considering he is going into hospice, unclear what the utility of this is anyway.
No need for ABx either at this time given he is pending enrollent into hospice
Smoking history noted
Smoking cessation, has quit within last 1 month
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
Observe for signs of w/d
MSAS PRN
Thiamine/folate
Weight loss noted
Dietary consulted
Cachectic appearing
Overall prognosis appears poor
Palliative care evaluation (as an outpatient), hospice evaluation
Patient is awaiting enrollment into hospice, still need to figure out whether he will do home hospice versus here in the hospital versus another facility. No additional recommendations at this time from pulmonary service. Pulmonary service will
now sign off. Thank you for allowing us to be involved in the care of this patient. Please reconsult if there are any additional questions/concerns, or if patient's respiratory status deteriorates.
Total time spent today was 35 minutes for this encounter. Time includes reviewing laboratory test/imaging results, reviewing pertinent medical records, obtaining and reviewing medical history, performing an appropriate exam, ordering medications,
tests and procedures. Time also includes documentation of this encounter, coordinating patient care and communicating with other healthcare professionals. Total time does not include separately billed tests performed on this date of service.
Diagnostic Data
Chest X-Ray 11-20-23- Dense opacification of the entire right hemithorax. Numerous differential diagnostic possibilities some of which include pleural effusion, mass and parenchymal consolidation.
Nonspecific reticular interstitial opacities throughout the left lung. No findings to suggest mediastinal shift.
CT Chest with IV Contrast 11-20-2023- Large right pleural effusion with complete collapse of the right lung, findings resulting in complete opacification of the right hemithorax. There is slight shift of the mediastinum toward the left. Subtle
thickened enhancement of the periphery of the right pleural space, especially inferiorly, which is suggestive of malignant right pleural effusion. Within the interlobar right pulmonary artery, there is an ovoid filling defect, with main differential
considerations of bland clot/thrombus, versus tumor thrombus extending into the lumen of the right pulmonary artery. Numerous nodular opacities throughout the left lung, with a region of greater confluence in the medial aspect of the left lower
lobe. Findings are felt to most likely represent neoplasia. Diffuse infection is a differential consideration, but felt to be less likely. There is a minimal left effusion, posteromedially. Lymphadenopathy in the AP window and left hilar region,
highly suspicious for neoplastic lymphadenopathy.
No convincing evidence for bony metastatic disease. Slightly enlarged lymph nodes in the gastrohepatic ligament region of the upper abdomen, suspicious for neoplastic lymphadenopathy.
CT Abd/Pelvis with IV Contrast 11-24-2023:
Interval increase in now small left pleural effusion. Large right pleural effusion with complete atelectasis of the visualized right lung is unchanged. Innumerable bilateral lung nodules are unchanged as well.
2 subcentimeter low-density liver lesions which are too small to characterize, and may represent benign hemangiomas or small metastases.
A few enlarged inferior mediastinal and upper abdominal lymph nodes suspicious for metastatic disease. A few prominent retroperitoneal lymph nodes are present as well, the largest in the left periaortic region measuring 12 x 10 mm on axial image 29.
1.4 cm lytic lesion in the left iliac bone (axial images 48-49) suspicious for osseous metastatic disease.
Recommend further evaluation with PET/CT for definitive staging.
Pathology:
Pleural fluid, right thorax, thoracentesis
Positive for malignant cells.
Metastatic adenocarcinoma, compatible with lung primary origin
Reports and relevant images were personally reviewed.
Subjective Data
-
Date of Service:
Date of Service: November 26, 2023
Chief Complaint: Pulmonary Follow Up
Subjective:
Patient seen and evaluated today at bedside. Patient's sister, Ana Peraza, and patient's brother, Joseph Jamison, both at bedside. Patient continues to be short of breath with exertion. I discussed Pleurx catheter placement but he wants to think
about it. He is on room air but is tachypneic. He denies chest pain, headache, abdominal pain, fevers or chills.
Review of Systems
General: Other (Negative unless mentioned above)
Objective Data
Data Reviewed
Vital Signs / I&O / Oxygen:
Vital Signs
Temp Pulse Resp BP Pulse Ox
97.6 F 67 18 102/67 94
11/26/23 07:00 11/26/23 07:00 11/26/23 07:00 11/26/23 07:00 11/26/23 07:00
Intake and Output
11/25/23 11/26/23 11/27/23
06:59 06:59 06:59
Intake Total 490 / 490 1058 / 1058
Output Total 100 / 100 750 / 750
Balance 390 / 390 308 / 308
SaO2 94
Physical Exam
General: Comfortable and Other (Cachectic appearing/chronically ill, flat affect)
HEENT: Normocephalic and Anicteric
Cardiovascular: S1-S2, Murmur (n), Rub (n), Peripheral Edema (negative) and Calf Tenderness (n)
Respiratory: Wheeze (negative), Crackles (Bilaterally (L>R)), Rhonchi (negative), Non-Labored Respirations, Stridor (n) and Other (Reduced breath sounds in the right hemithorax)
GI: Soft, Non Distended, Non Tender and Normal Bowel Sounds
Neurology: Awake, Alert and No Motor Deficits (Moves all extremities)
Skin: Warm, Cyanosis (n), Jaundice (n) and Rash (n)
Labs/Micro/Reports
Lab Data
11/25/23 07:46
11/25/23 07:46
Laboratory Results
11/25/23 11/25/23 11/26/23
17:00 23:39 05:55
APTT 76.1 H 86.6 H 82.5 H
Microbiology
11/24/23 13:11 Pleural Fluid Body Fluid Culture - Preliminary
No Growth After 18-24 Hours
11/24/23 13:11 Pleural Fluid Gram Stain - Preliminary
11/21/23 13:15 Pleural Fluid Body Fluid Culture - Final
No Growth After 72 Hours
11/21/23 13:15 Pleural Fluid Gram Stain - Final
11/21/23 13:15 Pleural Fluid Acid Fast Bacilli Smear - Preliminary
11/21/23 13:15 Pleural Fluid Acid Fast Bacilli Culture - Preliminary
--- NOTE | 2023-11-26 11:13 | CM ---
Addendum entered by Jemma Harvey 11/26/23 17:57:
Family spoke with CM about episode in 2019 when patient went to crisis center, cousin was not given any diagnosis at the time due to hippa, was in hospital dying at the time. No formal diagnosis ever given patient stopped taking meds/seeing
psychiatrist when pandemic occurred. CM will send referrals to SNF options requested by patient family; [facility]. CM will await responses.
Original Note:
Hospice assessment/consult requested and sent to [facility]. Await response regarding plan. CM will continue to follow for discharge planning needs.
Plan; tbd; snf vs home with family/hospice
--- NOTE | 2023-11-26 14:10 | W.PN.HOSP.TC ---
Addendum entered and electronically signed by Namita Frances MD 11/26/23 15:23:
I saw and evaluated the patient independently. I reviewed the resident�s note and agree with findings and plan as documented by Dr. Santos.
GENERAL: frail, cachectic appearing male in no apparent distress
HEENT: no O2, increased cough
HEART: regular rate and rhythm, +S1, +S2
LUNGS : decreased BS right lung field with minimal air movement improvement to right lung, crackles left lung
ABDOM: soft, nontender, nondistended, + bowel sounds
EXT: no cyanosis, clubbing, or edema
NEUROLOGIC: grossly intact
malignant pleural effusion (metastatic lung carcinoma)--SOB for at least 4 weeks---apprec pulm/IR input--s/p thoracentesis with 2250mls out, exudate, repeat thoracentesis 11/23 with 1400 mls out again--stop zosyn as cultures negative --pulm ordered CT
scan for staging (pleural effusions, innumerable lung nodules, LAD, lytic bone lesions)--apprec onc now that we have tissue diagnosis--hospice met with pt and family, looking to place in SNF as opposed to home
hypokalemia--replete as needed
Alcohol abuse--says stopped 7 days prior to admission--no signs of withdrawal--cont MSAS protocol
severe protein calorie malnutrition of chronic illness--BMI 17
hypothyroid--TSH 35, free T4 0.57 L-- started levothyroxine at 25mcg---recheck TFTs in 4 weeks
cyst on shoulder (sister reports pt had for 15 years)
code status -- full code
Original Note:
Today's Communication/Plan
-
Consult hospice team to discuss options with patient and sister
Assessment / Plan
Assessment / Plan
Patient is 68-year-old male
SOB for at least 4 weeks--significant right sided pleural effusion (with smoking hx, weight loss)--repeat thoracentesis with 1400 mls out---fluid cytology revealed metastatic adenocarcinoma with lung origin--- discontinue zosyn
apprec pul consult: Consider Pleurx catheter given ineligibility for systemic therapy, GOC discussion--- Consider outpatient palliative care referral
Ct Abd/Pelvis to eval for distant mets---A few enlarged inferior mediastinal and upper abdominal lymph nodes suspicious for metastatic disease. A few prominent retroperitoneal lymph nodes are present as well. 1.4 cm lytic lesion in the left iliac
bone suspicious for osseous metastatic disease.2 subcentimeter low-density liver lesions which are too small to characterize, and may represent benign hemangiomas or small metastases--consider further evaluation with PET/CT for definitive staging.
apprec oncology consult: may not be a candidate for any form of systemic therapy. Agree with tentative plans for Pleurx catheter--lengthy discussion with patient and his sister regarding the lack of treatment options in his current state.
Options for home or snf hospice were thoroughly discussed with patient and his sister. The patient and their sister do not seem to want pleural cath placed. Hospice team will be coming to discuss more regarding continuation of care including code
status.
New onset of confusion: Possibly consider brain CT to r/o mtx
Abnormal PTT: monitor PTT per protocol
Alcohol abuse: cont MSAS protocol
likely severe protein calorie malnutrition--BMI 17--possible dietary consultation
hypothyroid--TSH 35-- started levothyroxine at 25mcg--recheck TFTs in 4 weeks
code status -- full code
Anticipated Discharge: 24 - 48 hours
Subjective/Interval History
-
Date of Service: November 26, 2023
Patient has had fecal incontinence overnight. Has productive cough. As of now, patient is alert and awake. Nurse mentions he has been acting confused at times during last night.
Objective Data
-
Labs:
Laboratory Results
11/26/23
05:55
APTT 82.5 H
Vital Signs:
Vital Signs
Temp Pulse Resp BP Pulse Ox
97.6 F 67 18 102/67 94
11/26/23 07:00 07/05/24 07:00 11/26/23 07:00 11/26/23 07:00 11/26/23 07:00
I&O
11/25/23 11/26/23 11/27/23
06:59 06:59 06:59
Intake Total 490 / 490 1058 / 1058
Output Total 100 / 100 750 / 750
Balance 390 / 390 308 / 308
Review of Systems
-
History Source: Patient
All other systems: Reviewed and negative
Constitutional: Reports Weight Loss and Weakness
Respiratory: Reports Cough and Trouble Breathing
Cardiac: Reports No Symptoms
Abdomen/GI: Reports No Symptoms
Genitourinary: Reports Incontinence
Neuro: Reports No Symptoms
Endocrine: Reports No Symptoms
Hematologic / Lymphatic: Reports No Symptoms
Allergy / Immunology: Reports No Symptoms
Physical Exam
-
General: Well Developed, Well Nourished and No Apparent Distress
HEENT: Normocephalic and Atraumatic
--- NOTE | 2023-11-26 14:24 | HOSPNOTE ---
Referral received. Met with patient and his family including sister, brother and niece. Reviewed hospice and the philosophy. They would like to sign onto hospice. The question at hand is home hospice with brother and possibly paid caregivers vs
hospice in a facility. Family was going to discuss and make a decision. I asked CM to provide information regarding the facility aspect and what is required to get that process started. Also discussed code status. Patient stated that he needed time
to think about that. Family stated they would discuss with him and get back to us. CM and Attending updated. Hospice will continue to follow and be available.
[2023-11-26] MEDS: TESSALON PERLES 200 MG PO (14:42)
[2023-11-26 15:00] VITALS: BP 105/73
--- NOTE | 2023-11-26 16:01 | PTCARENOTE ---
pt agreeable to hospice at this time. family and patient trying to decided if snf vs home. pt heparin gtt d/c and abx d/c. pt given prn steven baca and prn pascual for pain by this nurse. see MAR for proper documentation.
[2023-11-26] MEDS: NSS (PRESERVATIVE FREE) 0.125 ML IV (18:04)
[2023-11-26] MEDS: ATIVAN 0.25 MG IV (18:05)
[2023-11-26 23:05] VITALS: BP 109/72
[2023-11-27] MEDS: SYNTHROID 25 MCG PO (05:32)
[2023-11-27] MEDS: ROXICODONE 5 MG PO ×3 (06:02→17:23)
[2023-11-27 07:05] VITALS: BP 102/67
[2023-11-27] MEDS: VITAMIN B1 100 MG PO ×2 (08:51→19:53)
[2023-11-27] MEDS: FOLVITE 1 MG PO (08:51)
[2023-11-27] MEDS: TESSALON PERLES 200 MG PO ×2 (08:58→17:22)
[2023-11-27] MEDS: ROBITUSSIN DM 5 ML PO ×2 (09:08→14:37)
--- NOTE | 2023-11-27 10:30 | HOSPNOTE ---
Addendum entered by Ling Valdes RN 11/27/23 18:56:
Spoke to nurse Romy. Patient is requiring IV ativan for anxiety. He also could eventually require IV morphine for pain control. Will monitor over the next 24 hours. Will also discuss with family and attending tomorrow for possible inpatient hospice
on Wednesday. More information to follow over the next 24 hours.
Original Note:
Hospice continues to follow- I called and spoke to patients sister Ana- she reports that they met with CM yesterday and started the process for facility placement. Ana confirmed after their discussion yesterday, they are not able to care for the
patient at home. Hospice will continue to follow and plan to admit once facility placement has been obtained.
--- NOTE | 2023-11-27 10:56 | W.PN.HOSP.TC ---
Today's Communication/Plan
-
looking for placement and hospice
Assessment / Plan
Assessment / Plan
Patient is 68-year-old male
malignant pleural effusion (metastatic lung carcinoma)--SOB for at least 4 weeks---apprec pulm/IR input--s/p thoracentesis with 2250mls out, exudate, repeat thoracentesis 11/23 with 1400 mls out again--stop zosyn as cultures negative --pulm ordered CT
scan for staging (pleural effusions, innumerable lung nodules, LAD, lytic bone lesions)--apprec onc now that we have tissue diagnosis--hospice met with pt and family, looking to place in SNF as opposed to home
hypokalemia--replete as needed
Alcohol abuse--says stopped 7 days prior to admission--no signs of withdrawal--cont MSAS protocol
severe protein calorie malnutrition of chronic illness--BMI 17
hypothyroid--TSH 35, free T4 0.57 L-- started levothyroxine at 25mcg---recheck TFTs in 4 weeks
cyst on shoulder (sister reports pt had for 15 years)
code status --DNR/DNI
Anticipated Discharge: 24 - 48 hours
Subjective/Interval History
-
Date of Service: November 27, 2023
pt does not want to leave the hospital today
Objective Data
-
Vital Signs:
max temp for 24 hours
11/26/23
23:05
Temp 98.1 F
Vital Signs
Temp Pulse Resp BP Pulse Ox
97.4 F 74 12 102/67 93
11/27/23 07:05 11/27/23 07:05 11/27/23 07:05 11/27/23 07:05 11/27/23 10:04
I&O
11/26/23 11/27/23 11/28/23
06:59 06:59 06:59
Intake Total 1058 / 1058 60 / 60
Output Total 750 / 750 1025 / 1025
Balance 308 / 308 -965 / -965
Review of Systems
-
All other systems: Reviewed and negative
Physical Exam
-
General: Appears Chronically Ill and Cachectic
HEENT: Normocephalic and Atraumatic
Respiratory: Decreased Breath Sounds (whole right lung field)
Cardiac: Regular Rhythm and S1/S2; Negative Murmur
GI: Soft, Nontender, Nondistended and Normal Bowel Sounds
Musculoskeletal: No Clubbing, No Cyanosis and No Edema
[2023-11-27] MEDS: NSS (PRESERVATIVE FREE) 0.125 ML IV (14:38)
[2023-11-27] MEDS: ATIVAN 0.25 MG IV (14:39)
[2023-11-27 15:00] VITALS: BP 118/70
--- NOTE | 2023-11-27 18:30 | PTCARENOTE ---
Patient requiring PRN IV ativan and PO oxycodone for verbalized back pain and anxiety throughout this RN's shift; patient also with harsh, moist, frequent cough requiring occasional mouth suctioning and PRN robitussin and tessalon perles throughout
shift - see MAR. This RN communicated with hospice art therapist above information, hospice to follow patient tomorrow regarding plan of care.
[2023-11-27 23:00] VITALS: BP 114/80
--- NOTE | 2023-11-28 01:30 | PTCARENOTE ---
Patient denied pain and did not want any pain medicine when asked several times this evening. Occasional strong cough, but he did not want medicine for it. Patient repositioned for comfort and better breathing as needed. Patient resting comfortably
at this time.
[2023-11-28] MEDS: ROBITUSSIN DM 5 ML PO ×2 (02:26→14:11)
[2023-11-28] MEDS: TESSALON PERLES 200 MG PO ×3 (02:26→16:56)
[2023-11-28] MEDS: ROXICODONE 5 MG PO ×3 (02:27→18:36)
--- NOTE | 2023-11-28 02:30 | PTCARENOTE ---
Patient needed to be changed. New gown and condom cath and bed bath provided. Patient then wanted cough medicine and pain medicine. Provided as requested.
[2023-11-28] MEDS: SYNTHROID 25 MCG PO (05:50)
[2023-11-28 07:00] VITALS: BP 120/81
[2023-11-28] MEDS: FOLVITE 1 MG PO (08:17)
[2023-11-28] MEDS: VITAMIN B1 100 MG PO ×2 (08:17→21:53)
--- NOTE | 2023-11-28 09:16 | HOSPNOTE ---
Hospice continues to follow- patient appears comfortable on current regimen-- last doses of iv ativan were yesterday and still taking oxycodone for pain management. There is potential that he could turn inpatient appropriate. Will monitor over the
next 24 hours. I called and spoke to his sister Ana and provided an updated. Ideally they would like for patient to remain in the hospital but understand if he does not meet criteria and will need to go to a facility. Hospice will reassess
tomorrow.
--- NOTE | 2023-11-28 10:30 | W.PN.HOSP.TC ---
Today's Communication/Plan
-
Ongoing dispo efforts to in patient hospice
Assessment / Plan
Assessment / Plan
Patient is 68-year-old male
malignant pleural effusion (metastatic lung carcinoma)--SOB for at least 4 weeks---apprec pulm/IR input--s/p thoracentesis with 2250mls out, exudate, repeat thoracentesis 11/23 with 1400 mls out again--stop zosyn as cultures negative --pulm ordered CT
scan for staging (pleural effusions, innumerable lung nodules, LAD, lytic bone lesions)--apprec onc now that we have tissue diagnosis--hospice met with pt and family, looking to place in SNF as opposed to home
Alcohol abuse--says stopped 7 days prior to admission--no signs of withdrawal--cont MSAS protocol
severe protein calorie malnutrition of chronic illness--BMI 17
hypothyroid--TSH 35, free T4 0.57 L-- started levothyroxine at 25mcg---recheck TFTs in 4 weeks
cyst on shoulder (sister reports pt had for 15 years)
code status --DNR/DNI
Anticipated Discharge: Within 24 hours
Subjective/Interval History
-
Date of Service: November 28, 2023
Denies shortness of breath.
No nausea vomiting.
Objective Data
-
Vital Signs:
Vital Signs
Temp Pulse Resp BP Pulse Ox
97.7 F 72 20 120/81 93
11/28/23 07:00 11/28/23 07:00 11/28/23 07:00 11/28/23 07:00 11/28/23 07:00
I&O
11/27/23 11/28/23 11/29/23
06:59 06:59 06:59
Intake Total 60 / 60 840 / 840
Output Total 1025 / 1025 725 / 725
Balance -965 / -965 115 / 115
Review of Systems
-
Constitutional: Denies Fever
Respiratory: Reports Cough; Denies Trouble Breathing
Cardiac: Denies Chest Pain
Abdomen/GI: Denies Nausea or Vomiting
Musculoskeletal: Reports Joint Pain (in the back)
Neuro: Denies Dizzy
Physical Exam
-
General: No Apparent Distress
Respiratory: Non Labored Respirations and Decreased Breath Sounds (right lower zone); Negative Accessory Resp Muscle Use
Cardiac: Regular Rhythm and S1/S2
GI: Soft
Neuro: AO x 3
Psych: Calm
[2023-11-28] MEDS: NSS (PRESERVATIVE FREE) 1 ML IV (14:11)
[2023-11-28] MEDS: ATIVAN 0.25 MG IV (14:12)
[2023-11-28] MEDS: TYLENOL 650 MG PO (14:13)
[2023-11-28 15:00] VITALS: BP 115/75
[2023-11-28] MEDS: MORPHINE SULFATE 2 MG IV ×2 (16:56→21:53)
[2023-11-28 23:02] VITALS: BP 128/83
[2023-11-29] MEDS: TESSALON PERLES 200 MG PO ×2 (05:32→13:07)
[2023-11-29] MEDS: MORPHINE SULFATE 2 MG IV ×3 (05:32→13:07)
[2023-11-29] MEDS: SYNTHROID 25 MCG PO (05:32)
[2023-11-29] MEDS: ROXICODONE 5 MG PO (06:40)
[2023-11-29 07:51] VITALS: BP 109/68
[2023-11-29] MEDS: FOLVITE 1 MG PO (08:43)
[2023-11-29] MEDS: VITAMIN B1 100 MG PO (08:43)
[2023-11-29] MEDS: ROBITUSSIN DM 5 ML PO (08:43)
--- NOTE | 2023-11-29 09:00 | PTCARENOTE ---
Patient stating 10/10 pain throughout whole body especially throughout back, patient requiring doses of PRN IV morphine and PO oxycodone throughout night and cannot receive dose of either medication at this time. MD made aware, PRN IV morphine
changed from q4hr to q2hr, manager of housekeeping Lauren made aware of patient requiring more frequent doses of pain medication.
--- NOTE | 2023-11-29 09:36 | HOSPNOTE ---
Spoke with attending and floor RN, patient is requiring frequent IV pushes of morphine for severe generalized pain. The patient will be admitted onto hospice services and remain inpatient hospice. Admissions was called and a hospice chart started.
Patient's sister will be in around 11am to sign consents and support patient.
[2023-11-29] MEDS: NSS (PRESERVATIVE FREE) 0.125 ML IV (13:06)
[2023-11-29] MEDS: ATIVAN 0.25 MG IV (13:07)
--- NOTE | 2023-11-29 13:28 | HOSPNOTE ---
Met with patient, his sister and brother at the bedside. Reviewed hospice care and GIP level of hospice, patient stated understanding, patient signed hospice consents. Patient rated pain 9 out of 10 and expressed difficulty breathing while at rest.
Patient will be GIP for managment of pain and dyspnea, requiring IV medications for managmenet
--- NOTE | 2023-11-29 16:04 | CM ---
Patient has discharged from acute care and transitioned to [facility].
== END 2023-11-29 14:24 | disposition hospice, inpatient (51) | DRG 180 ==
LOC: 2 NORTH 22:06
PROVIDERS: Emergency Medicine; Internal Medicine; Nurse Practitioner Family; Physician Assistant; Radiology Vascular & Interventional Radiology; ADMITTING PHYSICIAN Internal Medicine; ATTENDING PHYSICIAN Internal Medicine; CONSULT PHYSICIAN Internal Medicine; CONSULT PHYSICIAN Internal Medicine Hematology & Oncology; EMERGENCY PHYSICIAN Emergency Medicine; FAMILY PHYSICIAN Family Medicine
PROC: 0W993ZZ Drainage of Right Pleural Cavity, Percutaneous Approach (ICD-10-PCS; 2023-11-22)
DX: C34.90 Malignant neoplasm of unspecified part of unspecified bronchus or lung (principal); E43 Unspecified severe protein-calorie malnutrition; I26.99 Other pulmonary embolism without acute cor pulmonale; J91.0 Malignant pleural effusion; Z68.1 Body mass index [BMI] 19.9 or less, adult; J98.11 Atelectasis; S22.41XK Multiple fractures of ribs, right side, subsequent encounter for fracture with nonunion; R64 Cachexia; J98.19 Other pulmonary collapse; C79.51 Secondary malignant neoplasm of bone; R62.7 Adult failure to thrive; I10 Essential (primary) hypertension; F32.A Depression, unspecified; F41.9 Anxiety disorder, unspecified; E87.6 Hypokalemia; R91.8 Other nonspecific abnormal finding of lung field; R59.0 Localized enlarged lymph nodes; E03.9 Hypothyroidism, unspecified; F10.10 Alcohol abuse, uncomplicated; I25.10 Atherosclerotic heart disease of native coronary artery without angina pectoris; S22.42XS Multiple fractures of ribs, left side, sequela; X58.XXXD Exposure to other specified factors, subsequent encounter; Z87.891 Personal history of nicotine dependence; Z82.49 Family history of ischemic heart disease and other diseases of the circulatory system; Z80.0 Family history of malignant neoplasm of digestive organs; Z92.3 Personal history of irradiation; Z86.73 Personal history of transient ischemic attack (TIA), and cerebral infarction without residual deficits; Z85.46 Personal history of malignant neoplasm of prostate
CPT/HCPCS: 88305; 32555; 71045; 71046; 71260; 74177; 80048; 80053; 82150; 82607; 82945; 82947; 82977; 83615; 83735; 83880; 83986; 84100; 84153; 84155; 84157; 84439; 84443; 84478; 84484; 85025; 85027; 85730; 87015; 87070; 87102; 87116; 87205; 88112; 88341; 88342; 89051; 93005; 94640; 96365; 96367; 96375; 99285; 99406; Q9967

== ENCOUNTER 2023-11-29 14:30 | Inpatient (IN) | payer OTHER, SELFPAY ==
[2023-11-29 08:00] VITALS: BP 109/68
--- NOTE | 2023-11-29 14:43 | W.DS.TRANS ---
DC Summary - Ad Taker
-
Discharge Instructions:
Instructions:
Stand-Alone Forms:
Changes to Home Medications: No
Discharge Medications:
DC Medications w/original date entered in [facility]
No Meds [No Current Medications] 11/20/23
Home Medication Changes
Pending Results: No
--- NOTE | 2023-11-29 14:46 | W.DCSUMMARY ---
Addendum entered and electronically signed by Govind Richard MD 11/29/23 15:55:
Read, reviewed, and agree. See same day progress note for additional details. Time spent coordinating care, DC planning, review of DC plan of care with resident, transition of care, review of records in EMR, med rec, consults, notes, d/w
consultants, nursing, family, and CM 35 mins
Original Note:
Documented by User: Lorenza Santos MD, Resident 11/29/23 15:23
Discharge Summary
Discharge Data
Date of Admission: 11/29/23
Date of Discharge: 11/29/23
-
Pending Results: No
Hospital Course
Patient is a 68-year-old male who lives in [place] with known history of a prior stroke, hypertension, alcohol abuse and a former smoker who quit 25 days ago.Patient was brought to the hospital by his niece for evaluation of shortness of breath
and weight loss. He had progressively been feeling short of breath for the past month, which got worse with any kind of exertional activity and had noticed he is gradually losing weight although he had been eating well. He also reported productive
cough with occasional yellow phlegm. He has been smoking 1 PPD since 12 years old and drinking 3 large beers daily and has a history of prostate cancer in the past. Workup in the ED showed massive right-sided pleural effusion and severely
atelectatic/collapsed appearance of the right lung. Patient was admitted for evaluation of pleural effusion.
Problem #1: Pleural effusion: Zosyn was started for postobstructive PNA. Thoracentesis yielded 2250 ml dark brown exudative pleural fluid. An additional 1400 mL of exudative fluid was yielded on repeat thoracentesis. Cytology revealed metastatic
adenocarcinoma, compatible with lung primary origin. Zosyn was discontinued after cultures came back negative. Abdominal pelvis CT scan showed signs of metastasis to multiple lymph nodes, liver and iliac bone. Oncology consult recommended hospice
care and/or pleurex due to low performance status and ineligibility for systemic therapy. Patient and family did not want pleural catheter. Patient and family decided to change CODE STATUS to DNR/DNI. They initially decided to choose home hospice,
however, given his constant need for pain medications, he and the family decided to opt for inpatient hospice at after lengthy discussions with case management and the medical team.
Patient was discharged and subsequently admitted to inpatient hospice.
Discharge Plan
-
Referrals:
UNKNOWN,NO INTERVIEW [Family Provider] -
Prescriptions:
No Action
No Current Medications
0
Discharge Date and Time
Print Language: INDONESIAN

Documented by User: Govind Richard MD 11/29/23 15:55
Discharge Summary
Discharge Data
Date of Admission: 11/29/23
Date of Discharge: 11/29/23
Discharge Plan
-
Referrals:
UNKNOWN,NO INTERVIEW [Family Provider] -
Prescriptions:
No Action
No Current Medications
0
Discharge Date and Time
Print Language: INDONESIAN
[2023-11-29] MEDS: MORPHINE SULFATE 2 MG IV (14:50)
[2023-11-29] MEDS: ROBINUL 0.2 MG IV (14:50)
[2023-11-29] MEDS: ATIVAN 1 MG IV (15:18)
--- NOTE | 2023-11-29 15:23 | W.DS.TRANS ---
DC Summary - Respiratory Care Faculty
-
Discharge Instructions:
Instructions:
Stand-Alone Forms:
Changes to Home Medications: No
Discharge Medications:
DC Medications w/original date entered in [employer]
No Meds [No Current Medications] 11/20/23
Home Medication Changes
--- NOTE | 2023-11-29 15:23 | W.PN.HOSP.TC ---
Addendum entered and electronically signed by Govind Richard MD 11/29/23 15:54:
I saw and evaluated the patient. I reviewed the resident�s note and agree with findings and plan as documented in the resident�s note.
Patient is alert and oriented. When asked the question what his diagnosis is-' i have stage 4 lung cancer'
patient is aware about his prognosis as well. Sister and another brother present at the bedside. He has 1 more brother who is not at bedside. Patient and the sister states that had a chance to speak with other subspecialties including Dr. Gaona
and pulmonary and has come to understand his diagnosis and prognosis. The sister says in fact he took care of his own with terminal cancer and understands the concept of hospice. Patient wants to continue the goals of care as comfort and
wanting to go on hospice but thinks with current symptoms he cant do it at home.
[facility] for inpatient hospice which is appropriate.
Total time of 35min
Original Note:
Today's Communication/Plan
-
Patient is being discharged and will be admitted to inpatient hospice.
Assessment / Plan
Assessment / Plan
Evaluation for inpatient hospice at is in progress with case management.
Anticipated Discharge: Today
Subjective/Interval History
-
Date of Service: November 29, 2023
Patient is alert and oriented. Understands his end-stage lung cancer disease. Mentions he would like to stay in the hospital. Did not have any episodes of loose stools overnight. Is worried about his cat.
Objective Data
-
Vital Signs:
Vital Signs
Pulse Ox
93
11/29/23 14:44
Review of Systems
-
History Source: Patient
All other systems: Reviewed and negative
Constitutional: Reports Weight Loss, No Appetite and Weakness
Respiratory: Reports Trouble Breathing and Pleurisy
Cardiac: Reports No Symptoms
Abdomen/GI: Reports No Symptoms
Genitourinary: Reports No Symptoms
Musculoskeletal: Reports Muscle Weakness
Psych: Reports Sad
Physical Exam
-
General: Appears Chronically Ill and Cachectic
HEENT: Normocephalic and Atraumatic
Respiratory: Crackles and Decreased Breath Sounds
Cardiac: Regular Rhythm and S1/S2
GI: Soft, Nontender and Nondistended
Rectal: Brown
Genito-urinary: No Costovertebral Tender
Musculoskeletal: No Cyanosis and No Edema
Skin: Warm
Neuro: Awake, Alert, Oriented, AO x 3 and No Motor Deficits
Hematologic / Lymphatic: No Lymphadenopathy
Psych: Other (overwhelmed)
Data Reviewed
-
Total Time Spent with Patient (in minutes): 50
--- NOTE | 2023-11-29 15:40 | HPS.HSE ---
Addendum entered and electronically signed by Govind Richard MD 11/29/23 15:56:
I personally performed a history and physical exam of the patient and discussed management with the resident. I reviewed the resident's note and agree with the documented findings and plan of care HPI/CC.
Original Note:
Family Physician
-
Family Physician: NO INTERVIEW UNKNOWN
Chief Complaint
-
Inpatient hospice admission
History of Present Illness
Patient with terminal cancer opted for hospice. Being admitted for hospice care.
Medical History
Past Medical History
Past Medical History: Reports Other
Additional Past Medical History:
Past medical History:
Hypertension
Stroke
Prostate cancer
alcohol abuse
Former Smoker
Social History:drinks alcohol, drinks 3 large beer daily , smoked one pack for many year but quit 25 days ago, denied drug use.
Family history: father had colon cancer, Hypertension.
Past Surgical History: Reports Other
Social History
Unable to obtain full social history at this time due to: Other
Family History
Family History: Other
Allergies / Home Medications
Allergies reflects when Allergies were last updated in [facility]
Home Medications with original date entered in [facility]
Allergy/Medication List:
Not taking any medication.
Review of Systems
-
History Source: Patient
A 12 point ROS was completed and negative except as noted: Yes
Physical Exam
Vital Signs
Vital Signs
Pulse Ox
93
11/29/23 14:44
Physical Exam
General: Comfortable
Respiratory: Non Labored Respirations
Cardiac: S1/S2 and Regular Rhythm
Neuro: Awake, Alert, Oriented and AO x 3
Impression/Plan
-
IMPRESSION:
Patient is a 68-year-old male who lives in [place] with known history of a prior stroke, hypertension, alcohol abuse and a former smoker who quit 25 days ago.Patient was brought to the hospital by his niece for evaluation of shortness of breath
and weight loss. He had progressively been feeling short of breath for the past month, which got worse with any kind of exertional activity and had noticed he is gradually losing weight although he had been eating well. He also reported productive
cough with occasional yellow phlegm. He has been smoking 1 PPD since 12 years old and drinking 3 large beers daily and has a history of prostate cancer in the past. Workup in the ED showed massive right-sided pleural effusion and severely
atelectatic/collapsed appearance of the right lung. Patient was admitted for evaluation of pleural effusion.
Problem #1: Pleural effusion: Zosyn was started for postobstructive PNA. Thoracentesis yielded 2250 ml dark brown exudative pleural fluid. An additional 1400 mL of exudative fluid was yielded on repeat thoracentesis. Cytology revealed metastatic
adenocarcinoma, compatible with lung primary origin. Zosyn was discontinued after cultures came back negative. Abdominal pelvis CT scan showed signs of metastasis to multiple lymph nodes, liver and iliac bone. Oncology consult recommended hospice
care and/or pleurex due to low performance status and ineligibility for systemic therapy. Patient and family did not want pleural catheter. Patient and family decided to change CODE STATUS to DNR/DNI. They initially decided to choose home hospice,
however, given his constant need for pain medications, he and the family decided to opt for inpatient hospice at after lengthy discussions with case management and the medical team.
PLAN: Admitted for hospice care.
--- NOTE | 2023-11-29 16:11 | CM ---
Patient has discharged from acute care and transitioned to [facility]. CM will remain available to family and hospice team.
[2023-11-29] MEDS: ROBITUSSIN 200 MG PO (22:40)
[2023-11-29 23:31] VITALS: BP 113/72
[2023-11-30 07:50] VITALS: BP 128/90
[2023-11-30] MEDS: ROBITUSSIN 200 MG PO ×3 (08:17→17:58)
[2023-11-30] MEDS: MORPHINE SULFATE 2 MG IV ×4 (08:17→17:59)
[2023-11-30] MEDS: ROBINUL 0.2 MG IV ×3 (08:27→17:59)
[2023-11-30] MEDS: ATIVAN 1 MG IV ×3 (09:59→16:12)
--- NOTE | 2023-11-30 10:58 | HOSPNOTE ---
toll transmission worker visited with patient to provide supportive services as well as to complete initial PRECISION FILER HAND assessment. Patient is currently GIP level of care. Patient is a 68 year old who was recently admitted with primary diagnosis of malignant
neoplasm of right lung. Patient's sister Ana is POA. Patient is and had cared for his who was on hospice about 7 years ago. Patient has two brothers and one sister. Patient reported to attending that he use to drink 3 large beers daily
and smoked 1 PPD since 12 years old however claims to have quit about a month ago. [employer] was in room cleaning patient up and PRECISION FILER HAND provided privacy before visiting with patient. Patient is Pentec[employer]alism and not affiliated with judaism in community.
Sacrament of the sick was requested and social media sr strategy manager informed bulb grader Rishi of request. Patient is AAOx3 and code status is DNR. Patient was living in [facility] prior to being admitted. Patient was lethargic during visit and was not very
talkative. Patient is worried about his cat and social media sr strategy manager received confirmation that patient's niece is taking care of his cat. No concerns or pain verbalized by patient during visit. odd bundle worker called sister Ana to introduce self and
provide update. No arrangements at this time. Ana expressed that patient would like to be cremated. List of crematories and homes left in room for sister per her request. Ana stated that if patient is no longer GIP appropriate that
patient will need to move in with brother Joseph or look into LTC placement. Patient continues to be GIP level of care appropriate due to management of pain and anxiety with IV meds that cannot be managed outside of hospital setting. odd bundle worker
will visit at a frequency of twice a week. Discharge planning continues.
--- NOTE | 2023-11-30 13:17 | HOSPNOTE ---
Patient was seen by hospice nurse and the patient received ativan prior to my arrival. I spoke with the nurse at length and was told when patient is awake his pain is severe and anxiety. It seems to be managed with IV medications. The patient will
be seen daily by hospice nurse. Please continue to manage pain and anxiety.
--- NOTE | 2023-11-30 14:01 | W.PN.HOSP.TC ---
Addendum entered and electronically signed by Govind Richard MD 11/30/23 15:16:
I saw and evaluated the patient. I reviewed the resident�s note and agree with findings and plan as documented in the resident�s note.
DW sister at bedside and went over symptom management and answered her questions.
Original Note:
Today's Communication/Plan
-
Administer hydrocodone for coughs
Assessment / Plan
Assessment / Plan
Patient is a 68-year-old male with end-stage metastatic lung cancer. Was admitted to inpatient hospice yesterday.
Severe cough--started hydrocodone syrup 5 mg every 4 hours
Anticipated Discharge: > 48 hours
Subjective/Interval History
-
Date of Service: November 30, 2023
Patient complains of severe coughing. Would like to receive medication for less cough.
Objective Data
-
Vital Signs:
Vital Signs
Temp Pulse Resp BP Pulse Ox
97.6 F 93 18 128/90 94
11/30/23 07:50 11/30/23 07:50 11/30/23 07:50 11/30/23 07:50 11/30/23 10:19
I&O
11/29/23 11/30/23 12/01/23
06:59 06:59 06:59
Intake Total 900 / 900
Output Total 650 / 800 150 / 150
Balance 250 / 100 -150 / -150
Review of Systems
-
History Source: Patient
All other systems: Reviewed and negative
Constitutional: Reports Weight Loss, No Appetite and Weakness
Respiratory: Reports Cough and Trouble Breathing
Abdomen/GI: Reports No Symptoms
Psych: Reports Sad
Physical Exam
-
General: Well Developed, Well Nourished and No Apparent Distress
HEENT: Normocephalic and Atraumatic
Respiratory: Crackles and Decreased Breath Sounds
Cardiac: Regular Rhythm and S1/S2
GI: Soft, Nontender and Normal Bowel Sounds
Genito-urinary: No Costovertebral Tender
Musculoskeletal: No Cyanosis and No Edema
Neuro: Awake, Alert, Oriented and AO x 3
Hematologic / Lymphatic: No Lymphadenopathy
Psych: Calm
Data Reviewed
-
Total Time Spent with Patient (in minutes): 20
--- NOTE | 2023-11-30 14:01 | CM ---
Inpatient hospice. CM will remain available to family and hospice team.
[2023-11-30] MEDS: HYCODAN SYRUP 5 ML PO (16:12)
--- NOTE | 2023-11-30 16:14 | CHAP ---
Emotional and spiritual support provided. Prayer blanket given. Roofing Subcontractor request placed: Fr. Bolton anticipates arriving within the hour.
--- NOTE | 2023-11-30 18:00 | PTCARENOTE ---
Patient medicated throughout shift for frequent bouts of harsh coughing, verbalized anxiety and pain throughout body, particularly throughout back and chest when coughing; PRN IV morphine, ativan, robinul, robitussin, and hycodan syrup administered
throughout shift by this RN - see TRUMAN. This RN communicated with hospice home care coordinator Lauren regarding plan of care, prison guard and sales marketing coordinator asked to come to bedside to provide emotional support to patient and family.
[2023-11-30 23:09] VITALS: BP 111/77
[2023-12-01] MEDS: HYCODAN SYRUP 5 ML PO ×2 (01:22→12:01)
[2023-12-01] MEDS: ATIVAN 1 MG PO (01:26)
[2023-12-01] MEDS: MORPHINE SULFATE 2 MG IV ×9 (01:26→22:40)
[2023-12-01 07:55] VITALS: BP 96/68
[2023-12-01] MEDS: ATIVAN 1 MG IV ×4 (08:48→22:49)
[2023-12-01] MEDS: ROBINUL 0.2 MG IV ×2 (08:49→19:48)
--- NOTE | 2023-12-01 09:16 | PTCARENOTE ---
pt giving prn ativan, robinul and morphine. see MAR for proper documentation. pt with #25 CC intact, and is a Q2t at this time.
--- NOTE | 2023-12-01 12:14 | HOSPNOTE ---
Nehemias was sleeping comfortably, non-responsive, with family members present at bedside. Sacrament of the Sick was provided by Fr. Bolton. Straightening Roll Operator offered emotional and spiritual support; will continue support through weekly visits.
--- NOTE | 2023-12-01 13:06 | CM ---
Inpatient hospice. CM will remain available to family and hospice team.
[2023-12-01] MEDS: MORPHINE 100 IV (14:33)
--- NOTE | 2023-12-01 15:40 | W.PN.UPDATE ---
Update Note
Progress Note Update
Patient was requiring medication both for pain and also trouble with the breathing last night and this morning he has used 2 mg IV morphine every 2 hours. Feel prudent to switch to IV morphine drip at 1 mg/h and adjust the dose as needed.
Discussed with sister and brother at bedside regarding the plan today and they agree the tx.
--- NOTE | 2023-12-01 15:55 | PTCARENOTE ---
pt started on a morphine gtt step 1 going through the R Forearm site at 1433. pt family remains at bedside and pt continues to be a Q2t
--- NOTE | 2023-12-01 16:37 | W.PN.HOSP.TC ---
Today's Communication/Plan
-
Start morphine IV drip
Assessment / Plan
Assessment / Plan
Patient is a 68-year-old male with end-stage metastatic lung cancer. Was admitted to inpatient hospice yesterday.
Severe cough--started hydrocodone syrup 5 mg every 4 hours.
Has been receiving almost 1 mg/h morphine last night--Switch to IV drip
Anticipated Discharge: > 48 hours
Subjective/Interval History
-
Date of Service: December 01, 2023
Patient mentions he has had more trouble with breathing. coughs have slightly improve.d
Objective Data
-
Vital Signs:
Vital Signs
Temp Pulse Resp BP Pulse Ox
97.3 F 97 20 96/68 92
12/01/23 07:55 12/01/23 07:55 12/01/23 07:55 12/01/23 07:55 12/01/23 07:55
I&O
11/30/23 12/01/23 12/02/23
06:59 06:59 06:59
Intake Total 900 / 900 780 / 780
Output Total 650 / 800 250 / 250
Balance 250 / 100 530 / 530
Physical Exam
-
General: Respiratory Distress and Cachectic
HEENT: Normocephalic and Atraumatic
Respiratory: Decreased Breath Sounds
Cardiac: Regular Rhythm and S1/S2
GI: Soft, Nontender and Nondistended
Rectal: Brown
Genito-urinary: No Costovertebral Tender
Musculoskeletal: No Clubbing, No Cyanosis and No Edema
Skin: Warm
Neuro: Awake, Alert, Oriented and AO x 3
Hematologic / Lymphatic: No Lymphadenopathy
Psych: Calm
Data Reviewed
-
Total Time Spent with Patient (in minutes): 20
[2023-12-01 19:13] VITALS: BP 107/71
--- NOTE | 2023-12-01 22:45 | PTCARENOTE ---
another 2mg bolus admin r/t pain and resp distress. morphine gtt increased to step 2 @ 2mg/hr. will monitor.
[2023-12-01] MEDS: ZOFRAN 4 MG IV (22:50)
[2023-12-02] MEDS: TYLENOL/FEVERALL 650 MG RECTAL (00:03)
[2023-12-02] MEDS: MORPHINE SULFATE 2 MG IV ×3 (06:46→07:47)
[2023-12-02 07:05] VITALS: BP 77/54
[2023-12-02] MEDS: ROBINUL 0.2 MG IV (07:15)
--- NOTE | 2023-12-02 09:36 | W.PN.DEATH ---
Pronouncement of
-
Called to see patient to pronounce.
No spontaneous heart tones or respirations noted.
Patient not responsive to verbal stimuli.
Patient is pronounced .
Time of : 09:10
Date of : 12/02/23
Cause of : Stage 4 Lung cancer
Family Notified: Yes
--- NOTE | 2023-12-02 10:18 | PTCARENOTE ---
pt passed 909. nurse made MD aware and he came to bedside to pronounce. family within the room
--- NOTE | 2023-12-02 10:44 | HOSPNOTE ---
blood bank worker went to visit patient and was informed upon arrival that patient passed about an hour ago and that Dr. Richard pronounced. Family present at bedside and appears to be coping appropriately at this time. hollow handle bench worker informed
hospice team of passing. Sister Ana confirmed that she called [facility] in [place]. Information provided to medical liaison Lauren.
--- NOTE | 2023-12-02 12:55 | CM ---
Patient . Pronounced at 9:10AM.
--- NOTE | 2023-12-02 17:09 | W.DCSUMMARY ---
Discharge Summary
Discharge Data
Date of Admission: 11/29/23
Date of Discharge: 12/02/23
-
Pending Results: No
Hospital Course
Patient was admitted to inpatient hospice on 11/29/2023 with end-stage lung cancer. He peacefully with his siblings and mother by his bedside at 9:10 AM on 12/02/2023 in the hospital. was pronounced at 9:41 AM.
Discharge Plan
-
Patient Disposition:
Date/Time
Date/Time: 12/02/23 09:10
Discharge Date and Time
Discharge Date/Time: 12/02/23 09:10
Print Language: IRISH
== END 2023-12-02 09:10 | disposition expired | DRG 951 ==
LOC: 2 NORTH 14:30
PROVIDERS: ADMITTING PHYSICIAN Internal Medicine
DX: Z51.5 Encounter for palliative care (principal); C34.90 Malignant neoplasm of unspecified part of unspecified bronchus or lung; C78.7 Secondary malignant neoplasm of liver and intrahepatic bile duct; C77.9 Secondary and unspecified malignant neoplasm of lymph node, unspecified; C79.51 Secondary malignant neoplasm of bone; J90 Pleural effusion, not elsewhere classified; I10 Essential (primary) hypertension; F17.210 Nicotine dependence, cigarettes, uncomplicated; F10.10 Alcohol abuse, uncomplicated; Z66 Do not resuscitate; Z86.73 Personal history of transient ischemic attack (TIA), and cerebral infarction without residual deficits; Z80.0 Family history of malignant neoplasm of digestive organs; Z85.46 Personal history of malignant neoplasm of prostate
CPT/HCPCS: 99406